=== PATIENT | female | born 1945 | race Caucasian/White ===

== ENCOUNTER 2017-06-24 16:55 | Emergency (ER) | payer MEDICARE, OTHER ==
[2017-06-24 16:56] VITALS: BMI 26.2
[2017-06-24] MEDS ORDERED: Albuterol-Ipratrop 3 mg / 0.5 (3 ml) UD INH STA (17:26)
[2017-06-24] MEDS ORDERED: Albuterol-Ipratrop 3 mg / 0.5 (3 ml) UD ONE ×2 (17:34→19:14)
[2017-06-24 18:01] LABS: BASO % 0.7 % (0.0-2.0); EOS % 0.2 % (0.0-4.0); HEMOGLOBIN 9.6 g/dL (11.0-16.0); LYMPH # 1.1 K/uL (1.0-4.3); LYMPH % 15.9 % (20.0-40.0); MEAN CORPUSCULAR HEMOGLOBIN 20.6 pg (27.0-31.0); MEAN CORPUSCULAR HGB CONC 31.7 g/dL (33.0-37.0); MEAN PLATELET VOLUME 7.4 fL (7.2-11.7); MONO # 0.4 K/uL (0.0-0.8); MONO % 6.3 % (0.0-10.0); NEUT # 5.3 K/uL (1.8-7.0); NEUT % 76.9 % (50.0-75.0); RBC 4.68 Mil/uL (3.80-5.20); RED CELL DISTRIBUTION WIDTH 17.5 % (11.5-14.5); WHITE BLOOD COUNT 6.9 K/uL (4.8-10.8)
[2017-06-24 18:03] LABS: MEAN CELL VOLUME 64.9 fL (81.0-99.0)
[2017-06-24 18:10] LABS: SQUAMOUS EPITHIAL < 1 /hpf (0-5); URINE BACTERIA RARE (<OCC); URINE BILIRUBIN NEGATIVE (NEGATIVE); URINE BLOOD NEGATIVE (NEGATIVE); URINE CLARITY Clear (Clear); URINE COLOR Colorless (YELLOW); URINE GLUCOSE (UA) NORMAL (Normal); URINE LEUKOCYTE ESTERASE NEG Leu/uL (Negative); URINE PROTEIN NEGATIVE (NEGATIVE); URINE UROBILINOGEN NORMAL mg/dL (0.2-1.0)
[2017-06-24 18:22] LABS: ALT/SGPT 19 U/L (9-52); AST/SGOT 31 U/L (14-36); BLOOD UREA NITROGEN 14 mg/dL (7-17); CALCIUM 9.1 mg/dl (8.6-10.4); GFR AFRICAN-AMERICAN > 60; GFR NON-AFRICAN AMERICAN > 60
[2017-06-24 18:25] LABS: B-TYPE NATRIURETIC PEPTIDE 242 pg/mL (0-900)
[2017-06-24 18:56] VITALS: O2SAT 100
--- NOTE | 2017-06-24 19:00 | C.PDOC ---
History Of Present Illness 72 y/o female presents to the ED with a cough. Patient is complaining of chest discomfort that has been bothering her for the past [address] Alas prescribed her a nebulizer machine which she used twice yesterday and once today. However, she is supposed to use the nebulizer 5-7 times per day. PMD: Dr.Sekar Mueller Time Seen by Provider: 06/24/17 17:19 Chief Complaint (Nursing): Shortness Of Breath History Per: Patient History/Exam Limitations: no limitations Onset/Duration Of Symptoms: Days (6) Current Symptoms Are (Timing): Still Present Associated Symptoms: Chest Pain, Productive Cough Recent travel outside of the [place]: No Past Medical History Vital Signs: Last Vital Signs Temp 98.2 F 06/24/17 17:08 Pulse 75 06/24/17 18:55 Resp 16 06/24/17 18:55 BP 135/75 06/24/17 18:55 Pulse Ox 100 06/24/17 19:00 - Medical History PMH: Anemia, Anxiety, Arthritis, Asthma, COPD, Gastritis, HTN, Hypercholesterolemia, Rheumatoid Arthritis Denies: Chronic Kidney Disease Surgical History: Coronary Stent, Endoscopy - [facility] Procedures CARDIAC STRESS TEST NEC (07/06/14) RT & LT HEART ANGIOCARD (10/09/12) RT/LEFT HEART CARD CATH (10/09/12) Family History: States: Unknown Family Hx - Social History Hx Tobacco Use: No Hx Alcohol Use: No Hx Substance Use: No - Immunization History Hx Tetanus Toxoid Vaccination: No Hx Influenza Vaccination: Yes Hx Pneumococcal Vaccination: Yes Review Of Systems Cardiovascular: Positive for: Chest Pain Respiratory: Positive for: Cough Physical Exam - Physical Exam Appears: No Acute Distress Skin: Normal Color, Warm, Dry Head: Atraumatic, Normacephalic Eye(s): bilateral: Normal Inspection, PERRL, EOMI Neck: Normal, Normal ROM, Supple Cardiovascular: Rhythm Regular, No Murmur Respiratory: No Normal Breath Sounds (mild tubular breath sounds), Other ( digitally reproducable pain in the intercoastal spces of the T4 and T5 region) Gastrointestinal/Abdominal: Normal Exam Back: Normal Inspection, No CVA Tenderness, No Vertebral Tenderness Extremity: Normal ROM, No Pedal Edema, No Deformity Neurological/Psych: Oriented x3 ED Course And Treatment - Laboratory Results Result Diagrams: 06/24/17 17:54 06/24/17 17:54 Lab Interpretation: Normal (trop/bnp neg.) ECG: Interpreted By Me ECG Rhythm: Sinus Rhythm ECG Interpretation: Normal Rate From EC O2 Sat by Pulse Oximetry: 100 Pulse Ox Interpretation: Normal - Radiology CXR: Interpreted by Me CXR Interpretation: Yes: No Acute Disease, Other (+ some bronchial cuff thickening c/w airway disease) Reevaluation Time: 18:58 Reassessment Condition: Improved - Physician Consult Information Outcome Of Conversation: 1730, 1830, d/w Dr. Fritz, ok to d/c home. Medical Decision Making Medical Decision Making: mild airway disease, no pna/pnx poor compliance with nebs tx @ home. Disposition Doctor Will See Patient In The: Office Counseled Patient/Family Regarding: Studies Performed, Diagnosis - Disposition Referrals: Jolene Mueller MD [Staff Provider] - Disposition: HOME/ ROUTINE Disposition Time: 18:59 Condition: GOOD Additional Instructions: continue Duoneb Inhaled treatments using TWO ampules every 3-4 hours/day. follow-up with Dr. Fritz- call for an appointment Your evaluation normal today Chest discomfort: Costochondritis motrin 400-600 mg every 6 hours as needed Instructions: Asthma in Adults Forms: [facility] (Marshallese) - Clinical Impression Clinical Impression: Reactive airway disease - Scribe Statement The provider has reviewed the documentation as recorded by the Scribe ( Nickie Buchanan) All medical record entries made by the Scribe were at my direction and personally dictated by me. I have reviewed the chart and agree that the record accurately reflects my personal performance of the history, physical exam, medical decision making, and the department course for this patient. I have also personally directed, reviewed, and agree with the discharge instructions and disposition.
[2017-06-24] MEDS ORDERED: Albuterol-Ipratrop 3 mg / 0.5 (3 ml) UD INH SCH (19:15)
[2017-06-24] MEDS ORDERED: Albuterol-Ipratrop 3 mg / 0.5 (3 ml) UD INH ONE (19:16)
[2017-06-24 19:38] VITALS: BP 149/70; PULSE 83; RESP 18; TEMP 97.7
--- NOTE | 2017-06-25 08:39 | RAD ---
Chest x-ray two views History: Shortness of breath. Comparison: 11/01/2016 Findings: Mild venous congestion. Right hilar prominence. Small nodular density at the right costophrenic angle. This is of uncertain clinical etiology. This has not significantly changed since the prior study. This may represent a small nodule or granuloma. Heart size within normal limits. Calcific tendinopathy of the left proximal humerus. Impression: Mild venous congestion. Right hilar prominence. Small nodular density at the right costophrenic angle. This is of uncertain clinical etiology. This has not significantly changed since the prior study. This may represent a small nodule or granuloma.
--- NOTE | 2017-06-27 08:34 | CARD ---
APPROVED REPORT EKG Measurement Heart [id number] <Conclusion> Normal sinus rhythm Normal ECG
== END 2017-06-24 19:44 | disposition home or self-care (01) ==
LOC: C.ER 16:55
DX: J45.909 Unspecified asthma, uncomplicated (principal)
CPT/HCPCS: 71046; 80053; 81001; 83880; 84484; 85025; 87804; 93005; 94640; 96374; 99285; J2930

== ENCOUNTER 2017-08-23 16:01 | Emergency (ER) | payer MEDICARE, OTHER ==
[2017-08-23 16:01] VITALS: BMI 26.2
[2017-08-23 16:30] VITALS: O2SAT 97
[2017-08-23] MEDS ORDERED: Sodium Chloride 0.9% 1,000 ML IV ONE (17:08)
[2017-08-23] MEDS ORDERED: Belladonna-Phenobarbital PO STA (17:08)
[2017-08-23] MEDS ORDERED: Aluminum Hydroxide/Magnesium Hydroxide Susp (30 mL) PO STA (17:08)
[2017-08-23 17:28] LABS: EOS % 0.1 % (0.0-4.0); LYMPH # 0.9 K/uL (1.0-4.3); LYMPH % 9.4 % (20.0-40.0); MEAN CELL VOLUME 66.5 fL (81.0-99.0); MEAN CORPUSCULAR HEMOGLOBIN 20.8 pg (27.0-31.0); MEAN CORPUSCULAR HGB CONC 31.2 g/dL (33.0-37.0); MONO # 0.3 K/uL (0.0-0.8); MONO % 3.4 % (0.0-10.0); NEUT # 8.3 K/uL (1.8-7.0); NEUT % 87.1 % (50.0-75.0); NRBC % 0.1 % (0.0-2.0); PLATELET COUNT 323 K/uL (130-400); RBC 4.83 Mil/uL (3.80-5.20); RED CELL DISTRIBUTION WIDTH 17.6 % (11.5-14.5); WHITE BLOOD COUNT 9.5 K/uL (4.8-10.8)
[2017-08-23] MEDS ORDERED: Aluminum Hydroxide/Magnesium Hydroxide Susp (30 mL) ONE (17:34)
[2017-08-23] MEDS ORDERED: Belladonna-Phenobarbital ONE (17:34)
[2017-08-23 17:40] LABS: URINE BILIRUBIN NEGATIVE (NEGATIVE); URINE BLOOD NEGATIVE (NEGATIVE); URINE CLARITY Clear (Clear); URINE COLOR Yellow (YELLOW); URINE GLUCOSE (UA) NORMAL (Normal); URINE LEUKOCYTE ESTERASE 1+ Leu/uL (Negative); URINE PROTEIN NEGATIVE (NEGATIVE); URINE UROBILINOGEN NORMAL mg/dL (0.2-1.0)
[2017-08-23 18:02] LABS: CALCIUM 8.8 mg/dl (8.6-10.4); GFR AFRICAN-AMERICAN > 60; GFR NON-AFRICAN AMERICAN 54; LIPASE 182 U/L (23-300)
[2017-08-23 18:09] LABS: ALB/GLOB RATIO 1.3 (1.0-2.1); ALBUMIN 4.1 g/dL (3.5-5.0); ALT/SGPT 26 U/L (9-52); AST/SGOT 48 U/L (14-36); BLOOD UREA NITROGEN 25 mg/dL (7-17)
--- NOTE | 2017-08-23 18:29 | CT ---
PROCEDURE: CT Abdomen and Pelvis without intravenous contrast HISTORY: LUQ abdominal tenderness COMPARISON: 07/03/2014. TECHNIQUE: CT scan of the abdomen and pelvis was performed without administration of intravenous contrast. Oral contrast was not administered. Coronal and sagittal reformatted images were obtained. Radiation dose: Total exam DLP = 340.01 mGy-cm. This CT exam was performed using one or more of the following dose reduction techniques: Automated exposure control, adjustment of the mA and/or kV according to patient size, and/or use of iterative reconstruction technique. FINDINGS: LOWER THORAX: There is a 3 mm calcified nodule in the right lateral lung base. The visualized lungs are otherwise clear. LIVER: Normal in size. No gross lesion or ductal dilatation. GALLBLADDER AND BILE DUCTS: The gallbladder is contracted. PANCREAS: Normal in size. No gross lesion or ductal dilatation. SPLEEN: The spleen is normal in size and there is a nonspecific coarse calcification posteriorly and medial to the spleen, likely sequela of prior granulomatous infection. ADRENALS: No discrete nodule. KIDNEYS AND URETERS: Normal in size without nephrolithiasis. No hydronephrosis. There is a stable simple cyst in the left interpolar region. VASCULATURE: No aortic aneurysm. BOWEL: The stomach is distended and there is ingested material within. There is also distention of the duodenum The small bowel loops are normal in caliber. The colon is unremarkable. No bowel dilatation or obstruction APPENDIX: Normal appendix. PERITONEUM: No free fluid. No free air. LYMPH NODES: No enlarged lymph nodes. BLADDER: Unremarkable. REPRODUCTIVE: Enlarged fibroid uterus with a calcified fibroid in the posterior wall. BONES: No acute fracture. Multilevel degenerative disc disease in the lower lumbar spine. OTHER FINDINGS: None. IMPRESSION: No acute abdominal or pelvic abnormality. Distended stomach and duodenum. No evidence for bowel obstruction.
[2017-08-23 19:16] LABS: LYMPHOCYTE 6 % (20-40); MONOCYTE 5 % (0-10); NEUTROPHIL 89 % (50-75); PLATELET ESTIMATE NORMAL (NORMAL); TOTAL CELLS COUNTED 100
[2017-08-23 19:17] LABS: ANISOCYTOSIS SLIGHT; HYPOCHROMIC SLIGHT; MICROCYTOSIS SLIGHT; OVALOCYTES SLIGHT; POIKILOCYTOSIS SLIGHT; TARGET CELLS SLIGHT; TEARDROP CELLS SLIGHT
[2017-08-23 19:18] LABS: LARGE PLATELETS PRESENT
[2017-08-23 19:25] VITALS: BP 151/81; PULSE 60; RESP 19; TEMP 97.6
--- NOTE | 2017-08-23 21:28 | C.PDOC ---
History Of Present Illness 72 year old female, whose PMHx includes gastritis, presents to the ED for evaluation of left upper quadrant abdominal pain which began 2 weeks ago. Patient states she feels like the area is "bloated." She reports undergoing an endoscopy 3 years ago. Patient denies fever, chills, nausea, vomiting, blood in stool, dysuria, or changes in eating habits. Chief Complaint (Nursing): Abdominal Pain History Per: Patient History/Exam Limitations: no limitations Onset/Duration Of Symptoms: Other (2 weeks ) Current Symptoms Are (Timing): Still Present Location Of Pain/Discomfort: LUQ Quality Of Discomfort: "Pain" Associated Symptoms: denies: Fever, Chills, Nausea, Vomiting, Urinary Symptoms Additional History Per: Patient Abnormal Vaginal Bleeding: No Past Medical History Reviewed: Historical Data, Nursing Documentation, Vital Signs Vital Signs: Last Vital Signs Temp 97.6 F 08/23/17 19:23 Pulse 60 08/23/17 19:23 Resp 19 08/23/17 19:23 BP 151/81 H 08/23/17 19:23 Pulse Ox 97 08/23/17 21:54 - Medical History PMH: Anemia, Anxiety, Arthritis, Asthma, COPD, Gastritis, HTN, Hypercholesterolemia, Rheumatoid Arthritis Denies: Chronic Kidney Disease Surgical History: Coronary Stent, Endoscopy - [facility] Procedures CARDIAC STRESS TEST NEC (07/06/14) RT & LT HEART ANGIOCARD (10/09/12) RT/LEFT HEART CARD CATH (10/09/12) Family History: States: Unknown Family Hx - Social History Hx Tobacco Use: No Hx Alcohol Use: No Hx Substance Use: No - Immunization History Hx Tetanus Toxoid Vaccination: No Hx Influenza Vaccination: Yes Hx Pneumococcal Vaccination: Yes Review Of Systems Constitutional: Negative for: Fever, Chills Gastrointestinal: Positive for: Abdominal Pain (left upper quadrant ). Negative for: Nausea, Vomiting, Hematochezia Genitourinary: Negative for: Dysuria Physical Exam - Physical Exam Appears: Non-toxic, No Acute Distress Skin: Normal Color, Warm, Dry Head: Atraumatic, Normacephalic Eye(s): bilateral: Normal Inspection Oral Mucosa: Moist Neck: Supple Chest: Symmetrical, No Deformity Cardiovascular: Rhythm Regular, Murmur Respiratory: Normal Breath Sounds, No Rales, No Rhonchi, No Wheezing Gastrointestinal/Abdominal: Soft, No Tenderness, No Guarding, No Rebound Extremity: Normal ROM, Capillary Refill (less than 2 seconds ) Neurological/Psych: Oriented x3, Normal Speech, Normal Cognition ED Course And Treatment - Laboratory Results Result Diagrams: 08/23/17 17:23 08/23/17 17:23 O2 Sat by Pulse Oximetry: 97 (on RA) Pulse Ox Interpretation: Normal - CT Scan/US CT A/P Other Rad Studies (CT/US): Interpreted By Me, Read By Radiologist, Radiology Report Reviewed CT/US Interpretation: PROCEDURE: CT Abdomen and Pelvis without intravenous contrast. HISTORY: LUQ abdominal tenderness. COMPARISON: 07/03/2014. TECHNIQUE: CT scan of the abdomen and pelvis was performed without administration of intravenous contrast. Oral contrast was not administered. Coronal and sagittal reformatted images were obtained. Radiation dose: Total exam DLP = 340.01 mGy-cm. This CT exam was performed using one or more of the following dose reduction techniques: Automated exposure control, adjustment of the mA and/or kV according to patient size, and/or use of iterative reconstruction technique. FINDINGS: LOWER THORAX: There is a 3 mm calcified nodule in the right lateral lung base. The visualized lungs are otherwise clear. LIVER: Normal in size. No gross lesion or ductal dilatation. GALLBLADDER AND BILE DUCTS: The gallbladder is contracted. PANCREAS: Normal in size. No gross lesion or ductal dilatation. SPLEEN: The spleen is normal in size and there is a nonspecific coarse calcification posteriorly and medial to the spleen, likely sequela of prior granulomatous infection. ADRENALS: No discrete nodule. KIDNEYS AND URETERS: Normal in size without nephrolithiasis. No hydronephrosis. There is a stable simple cyst in the left interpolar region. VASCULATURE: No aortic aneurysm. BOWEL: The stomach is distended and there is ingested material within. There is also distention of the duodenum The small bowel loops are normal in caliber. The colon is unremarkable. No bowel dilatation or obstruction. APPENDIX: Normal appendix. PERITONEUM: No free fluid. No free air. LYMPH NODES: No enlarged lymph nodes. BLADDER: Unremarkable. REPRODUCTIVE: Enlarged fibroid uterus with a calcified fibroid in the posterior wall. BONES: No acute fracture. Multilevel degenerative disc disease in the lower lumbar spine. OTHER FINDINGS: None. IMPRESSION: No acute abdominal or pelvic abnormality. Distended stomach and duodenum. No evidence for bowel obstruction. Medical Decision Making Medical Decision Making: Impression: 72 year old female with left upper quadrant abdominal pain Progress: Bloodwork, urinalysis, CT A/P ordered and reviewed. PO, Maalox PO, Pepcid IVP, and IV Fluids given. On re-exam, patient is resting comfortably, showing no signs of distress and reports an improvement in her symptoms. Patient is tolerating PO intake and her abdomen remains soft. Patient is stable for discharge. She is advised to follow up with her PMD within 1-2 days for further evaluation and/or return to the ED if symptoms persist or worsen. Disposition - Disposition Referrals: Jolene Mueller MD [Staff Provider] - Disposition: HOME/ ROUTINE Disposition Time: 18:30 Condition: GOOD Additional Instructions: NELY MEEK, thank you for letting us take care of you today. Your provider was Keo Escalante DO and you were treated for ABD PAIN. The emergency medical care you received today was directed at your acute symptoms. If you were prescribed any medication, please fill it and take as directed. It may take several days for your symptoms to resolve. Return to the Emergency Department if your symptoms worsen, do not improve, or if you have any other problems. Please contact your doctor or call one of the physicians/clinics you have been referred to that are listed on the Patient Visit Information form that is included in your discharge packet. Bring any paperwork you were given at discharge with you along with any medications you are taking to your follow up visit. Our treatment cannot replace ongoing medical care by a primary care provider outside of the emergency department. Thank you for allowing the [facility] team to be part of your care today. Follow up with your primary care doctor in 3-4 days for re-evaluation and further management. Prescriptions: Ranitidine HCl [Zantac] 150 mg PO BID #20 tablet Instructions: Gastritis (DC) Forms: [facility] (Kyrgyz) - Clinical Impression Clinical Impression: Gastritis - Scribe Statement The provider has reviewed the documentation as recorded by the Scribe (Nano Monaco) Provider Attestation: All medical record entries made by the Scribe were at my direction and personally dictated by me. I have reviewed the chart and agree that the record accurately reflects my personal performance of the history, physical exam, medical decision making, and the department course for this patient. I have also personally directed, reviewed, and agree with the discharge instructions and disposition.
== END 2017-08-23 19:26 | disposition home or self-care (01) ==
LOC: C.ER 16:01
DX: K29.70 Gastritis, unspecified, without bleeding (principal); E78.00 Pure hypercholesterolemia, unspecified; I10 Essential (primary) hypertension; M06.9 Rheumatoid arthritis, unspecified; J44.9 Chronic obstructive pulmonary disease, unspecified
CPT/HCPCS: 74176; 80053; 81001; 83690; 85025; 87086; 96374; 99285; J7030

== ENCOUNTER 2017-10-03 15:52 | Inpatient (IN) | payer MEDICARE, OTHER ==
[2017-10-03 15:52] VITALS: BMI 26.2
[2017-10-03] MEDS ORDERED: Sodium Chloride 0.9% 1,000 ML IV ONE (16:54)
--- NOTE | 2017-10-03 16:57 | C.PDOC ---
History Of Present Illness 72 y/o female with history of Asthma, HTN, HLD and Anemia presents to ED with c/ o fever, chills, body aches and cough productive with yellow sputum for 4 days. Patient reports chest pain with cough and states she had taken Tylenol at night with no improvement. Patient saw Dr. Mueller for symptoms who advised she come to ED for further evaluation. Patient admits to sob and denies nausea, vomiting, dysuria or any other complaints at this time. Time Seen by Provider: 10/03/17 16:33 Chief Complaint (Nursing): Fever History Per: Patient History/Exam Limitations: no limitations Onset/Duration Of Symptoms: Days Current Symptoms Are (Timing): Still Present Associated Symptoms: Fever, Cough, Sputum Past Medical History Reviewed: Historical Data, Nursing Documentation, Vital Signs Vital Signs: Last Vital Signs Temp 101.6 F H 10/03/17 16:04 Pulse 102 H 10/03/17 16:04 Resp 22 10/03/17 16:04 BP 122/76 10/03/17 16:04 Pulse Ox 90 L 10/03/17 17:01 - Medical History PMH: Anemia, Anxiety, Arthritis, Asthma, COPD, Gastritis, HTN, Hypercholesterolemia, Rheumatoid Arthritis Surgical History: Coronary Stent, Endoscopy - [facility] Procedures CARDIAC STRESS TEST NEC (07/06/14) RT & LT HEART ANGIOCARD (10/09/12) RT/LEFT HEART CARD CATH (10/09/12) Family History: States: No Known Family Hx - Social History Hx Tobacco Use: No Hx Alcohol Use: No Hx Substance Use: No - Immunization History Hx Tetanus Toxoid Vaccination: No Hx Influenza Vaccination: Yes Hx Pneumococcal Vaccination: Yes Review Of Systems Constitutional: Positive for: Fever, Chills, Malaise Cardiovascular: Positive for: Chest Pain Respiratory: Positive for: Cough, Shortness of Breath, Sputum Gastrointestinal: Negative for: Nausea, Vomiting Genitourinary: Negative for: Dysuria Skin: Negative for: Rash Physical Exam - Physical Exam Appears: Non-toxic, No Acute Distress Skin: Warm, Dry, No Rash Head: Atraumatic, Normacephalic Eye(s): bilateral: Normal Inspection Oral Mucosa: Moist Throat: Normal, No Erythema, No Exudate Neck: Supple Cardiovascular: Rhythm Regular, Other (Dry cough present) Respiratory: No Rales, No Rhonchi, Wheezing (bilateral) Gastrointestinal/Abdominal: Soft, Tenderness (left side ), No Guarding, No Rebound Extremity: Normal ROM, Capillary Refill (<2 seconds) Neurological/Psych: Oriented x3, Normal Speech, Normal Cognition ED Course And Treatment - Laboratory Results Result Diagrams: 10/03/17 17:15 10/03/17 17:15 Lab Interpretation: Abnormal (PO2 65 on RA, WBC 11.8, lactate 1.0) O2 Sat by Pulse Oximetry: 90 (RA) - Radiology CXR: Viewed By Me, Read By Radiologist CXR Interpretation: Yes: No Acute Disease Reevaluation Time: 18:29 Reassessment Condition: Improved (Feels better on O2 nasal canula.) - Physician Consult Information Physician Contacted: Jolene Mueller Outcome Of Conversation: Patient to be kept for observation and IV antibiotics Disposition - Disposition Disposition: HOSPITALIZED Disposition Time: 18:30 Condition: STABLE - POA Present On Arrival: None - Clinical Impression Clinical Impression: Fever, Cough in adult, Hypoxia - Scribe Statement The provider has reviewed the documentation as recorded by the Scribmeng Richard All medical record entries made by the Hamidaibmeng were at my direction and personally dictated by me. I have reviewed the chart and agree that the record accurately reflects my personal performance of the history, physical exam, medical decision making, and the department course for this patient. I have also personally directed, reviewed, and agree with the discharge instructions and disposition.
[2017-10-03 17:20] LABS: BASO # 0.1 K/uL (0.0-0.2); BASO % 0.5 % (0.0-2.0); EOS % 0.2 % (0.0-4.0); HEMOGLOBIN 9.6 g/dL (11.0-16.0); LYMPH # 1.9 K/uL (1.0-4.3); MEAN CELL VOLUME 64.8 fL (81.0-99.0); MEAN CORPUSCULAR HEMOGLOBIN 20.3 pg (27.0-31.0); MEAN CORPUSCULAR HGB CONC 31.3 g/dL (33.0-37.0); MEAN PLATELET VOLUME 6.9 fL (7.2-11.7); MONO # 1.2 K/uL (0.0-0.8); MONO % 10.3 % (0.0-10.0); NEUT # 8.6 K/uL (1.8-7.0); RBC 4.7 Mil/uL (3.80-5.20); RED CELL DISTRIBUTION WIDTH 16.1 % (11.5-14.5); WHITE BLOOD COUNT 11.8 K/uL (4.8-10.8)
[2017-10-03 17:24] LABS: ABG ALLEN TEST PO; ARTERIAL BLOOD GAS HCO3 25.1 mmol/L (21-28); ARTERIAL BLOOD GAS O2 SAT 95.4 % (95-98); ARTERIAL BLOOD GAS PCO2 33 mm/Hg (35-45); ARTERIAL BLOOD GAS PH 7.46 (7.35-7.45); ARTERIAL BLOOD GAS PO2 65 mm/Hg (80-100); ARTERIAL BLOOD GAS TCO2 24.5 mmol/L (22-28)
[2017-10-03 17:35] LABS: ALB/GLOB RATIO 1.3 (1.0-2.1); ALBUMIN 3.8 g/dL (3.5-5.0)
--- NOTE | 2017-10-03 17:37 | RAD ---
Date of service: 10/03/2017 PROCEDURE: CHEST RADIOGRAPH, 1 VIEW HISTORY: Pneumonia COMPARISON: 06/24/2017. FINDINGS: LUNGS: The lungs are well inflated and clear. PLEURA: No pneumothorax or pleural fluid seen. CARDIOVASCULAR: Normal. OSSEOUS STRUCTURES: No significant abnormalities. VISUALIZED UPPER ABDOMEN: Normal. OTHER FINDINGS: None. IMPRESSION: No active pulmonary disease.
[2017-10-03] MEDS ORDERED: cefTRIAXone IV 1 gm in Dextros 50 ML IVPB ONE ×2 (17:47→19:01)
[2017-10-03] MEDS ORDERED: Azithromycin 500 MG in Sodium Chloride 0.9% 250 ML IVPB STA (17:48)
[2017-10-03 18:27] LABS: SQUAMOUS EPITHIAL 1 /hpf (0-5); URINE BACTERIA RARE (<OCC); URINE BILIRUBIN NEGATIVE (NEGATIVE); URINE BLOOD NEGATIVE (NEGATIVE); URINE CLARITY Hazy (Clear); URINE GLUCOSE (UA) NORMAL (Normal); URINE LEUKOCYTE ESTERASE 3+ Leu/uL (Negative); URINE PROTEIN 2+ mg/dL (NEGATIVE)
[2017-10-03 18:30] LABS: URINE COLOR YELLOW (YELLOW)
[2017-10-03] MEDS ORDERED: ACETAMINOPHEN 650 MG PO PRN ×3 (19:24→20:01)
[2017-10-03] MEDS: MethylPREDNISolone 40 mg Vial IVP SCH (22:04)
[2017-10-03] MEDS: Albuterol-Ipratrop 3 mg / 0.5 (3 ml) UD INH SCH (22:32)
[2017-10-04] MEDS: Albuterol-Ipratrop 3 mg / 0.5 (3 ml) UD INH SCH ×4 (01:13→19:13)
[2017-10-04] MEDS: Fluticasone-Salmeterol 500-50mcg Diskus INH SCH ×2 (08:15→19:13)
[2017-10-04] MEDS: cefTRIAXone IV 1 gm in Dextros 50 ML IVPB SCH (09:00)
[2017-10-04] MEDS: Metoprolol Succinate 25 mg XL Tab PO SCH (09:55)
[2017-10-04] MEDS: MethylPREDNISolone 40 mg Vial IVP SCH (09:55)
[2017-10-04] MEDS: Azithromycin 500mg/250ML NS 500 MG/250 ML BAG IVPB SCH (10:30)
[2017-10-04] MEDS: (Novolin R) Insulin Human Regular 100 units/ml vial SC SCH ×3 (11:30→21:48)
--- NOTE | 2017-10-04 15:49 | CT ---
Date of service: 10/04/2017 PROCEDURE: CT Chest without contrast HISTORY: pneumonia COMPARISON: 01/10/2017 TECHNIQUE: Contiguous axial images were obtained through the chest without intravenous contrast enhancement. Sagittal and coronal reconstructions were performed. Radiation dose (DLP): 392 mGy-cm. This CT exam was performed using one or more of the following dose reduction techniques: Automated exposure control, adjustment of the mA and/or kV according to patient size, and/or use of iterative reconstruction technique. FINDINGS: LUNGS: No dense consolidation seen. Bilateral diffuse patchy areas of coalescent ground-glass opacity are present some disease having mosaic pattern suggested. Bilateral minimal pulmonary infiltrates are compatible with this. These not particularly dense. These are however interval changes in lung parenchymal attenuation since the prior exam. The benign calcified right lower lobe pulmonary granuloma is renoted No interval worrisome nodules appreciated. Central tracheobronchial airways patent. MEDIASTINUM: Unremarkable thoracic aorta. No aneurysm. Normal sized heart. Coronary artery calcifications present Main pulmonary artery unremarkable. No vascular congestion. No suspicious lymphadenopathy. A few calcified mediastinal lymph nodes noted PLEURA: No pleural fluid. No pneumothorax. BONES: No fracture. No destructive lesion. UPPER ABDOMEN: Splenic calcified granulomas noted -unchanged. OTHER FINDINGS: None. IMPRESSION: Interval bilateral and diffuse patchy ground-glass pulmonary infiltrates ; no dense consolidation seen. No endobronchial or gross masses identified. Findings are more pronounced in the right lung. . Prior granulomatous exposure.
[2017-10-05] MEDS: Albuterol-Ipratrop 3 mg / 0.5 (3 ml) UD INH SCH ×4 (02:22→20:18)
[2017-10-05] MEDS: (Novolin R) Insulin Human Regular 100 units/ml vial SC SCH ×4 (08:15→21:31)
[2017-10-05] MEDS: Fluticasone-Salmeterol 500-50mcg Diskus INH SCH ×2 (08:26→20:22)
[2017-10-05] MEDS: cefTRIAXone IV 1 gm in Dextros 50 ML IVPB SCH (09:30)
[2017-10-05] MEDS ORDERED: MethylPREDNISolone 40 mg Vial IVP SCH (10:00)
[2017-10-05] MEDS: Metoprolol Succinate 25 mg XL Tab PO SCH (10:15)
[2017-10-05] MEDS: Azithromycin 500mg/250ML NS 500 MG/250 ML BAG IVPB SCH (10:30)
--- NOTE | 2017-10-05 10:54 | CP.PCM.PN ---
Subjective - Date & Time of Evaluation Date of Evaluation: 10/05/17 Time of Evaluation: 10:54 - Subjective Subjective: Patient today feeling slightly better. Less cough noted, still having epigastric discomfort. No nausea vomiting. Today the blood sugars much controlled than before. Vital signs otherwise stable. Exertional desaturation noted, 86% on room air noted Will get blood works including neurological parameters. In my opinion patient possibly has inflammatory lung disease. Underlying sarcoidosis, rheumatoid arthritis related lung changes cannot be ruled out. She is currently on antibiotic, and also Solu-Medrol. We will follow the patient. Objective - Vital Signs/Intake and Output Vital Signs (last 24 hours): Temp Pulse Resp BP Pulse Ox 97.7 F 80 20 119/72 95 10/05/17 07:00 10/05/17 07:00 10/05/17 07:00 10/05/17 07:00 10/05/17 07:00 Intake and Output: 10/05/17 10/05/17 06:59 18:59 Intake Total 1220 Balance 1220 - Medications Medications: Current Medications Acetaminophen (Tylenol 325mg Tab) 650 mg PO Q6H PRN PRN Reason: Pain, moderate (4-7) Last Admin: 10/03/17 22:24 Dose: 650 mg Albuterol/Ipratropium (Duoneb 3 Mg/0.5 Mg (3 Ml) Ud) 3 ml INH RQ6 [facility] [place] Last Admin: 10/05/17 07:26 Dose: 3 ml Amlodipine Besylate (Norvasc) 10 mg PO DAILY [facility] [place] Last Admin: 10/05/17 10:15 Dose: 10 mg Clopidogrel Bisulfate (Plavix) 75 mg PO DAILY [facility] [place] Last Admin: 10/05/17 10:15 Dose: 75 mg Ezetimibe (Zetia) 10 mg PO DAILY [facility] [place] Last Admin: 10/05/17 10:15 Dose: 10 mg Famotidine (Pepcid) 20 mg PO BID [facility] [place] Last Admin: 10/05/17 10:14 Dose: 20 mg Folic Acid (Folic Acid) 1 mg PO DAILY [facility] [place] Last Admin: 10/05/17 10:15 Dose: 1 mg Ceftriaxone Sodium (Rocephin Iv 1 Gm Duplex) 50 mls @ 100 mls/hr IVPB DAILY D[facility]ELLE PRN Reason: Protocol Last Admin: 10/05/17 09:30 Dose: 100 mls/hr Azithromycin (Zithromax 500mg In Ns Addvantage) 500 mg in 250 mls @ 167 mls/hr IVPB Q24H [facility]ANIELLE PRN Reason: Protocol Last Admin: 10/04/17 10:30 Dose: 167 mls/hr Insulin Human Regular (Novolin R) 0 unit SC ACHS DANIELLE PRN Reason: Protocol Last Admin: 10/05/17 08:15 Dose: 2 unit Metformin HCl (Glucophage) 500 mg PO BID D[facility]ELLE Last Admin: 10/05/17 10:15 Dose: 500 mg Methylprednisolone (Solu-Medrol) 40 mg IVP DAILY [facility] [place] Last Admin: 10/05/17 10:27 Dose: 40 mg Metoprolol Succinate (Toprol Xl) 25 mg PO DAILY [facility] Last Admin: 10/05/17 10:15 Dose: 25 mg Rosuvastatin Calcium (Crestor) 10 mg PO HS [facility] [place] Last Admin: 10/04/17 21:08 Dose: 10 mg Fluticasone/Salmeterol (Advair Diskus 500/50) 1 puff INH RQ12 [facility] [place] Last Admin: 10/05/17 08:26 Dose: Not Given - Labs Labs: 10/03/17 17:15 10/03/17 17:15
--- NOTE | 2017-10-05 10:54 | CP.PCM.HP ---
History of Present Illness - History of Present Illness History of Present Illness: Chief complaint: Cough shortness of breath HPI: 72-year-old female with a history of hypertension, CAD, cardiac stent, hypercholesterolemia, asthma, multiple allergies and osteoarthritis, rheumatoid arthritis came to the emergency room, following the patient was seen in my office. Patient was complaining of increasing fever, chills, 3 days duration. Patient initially started having some mild soreness of throat. But gradually got worse, chills noted, sweating present. She was not able to bleed. She came into my office, with the severe high-grade fever, and also hypoxia, I sent the patient to the emergency room immediately. Cough noted, but mostly dry, occasionally mucus noted. The mucus is thick yellow colored. Chest discomfort and chest pain noted with the cough. Tachycardia mildly noted. She denies any nausea, no diarrhea no vomiting no rash noted. She did not have any recent travel Past medical history: Hypertension, CAD, stent, hypercholesterolemia, asthma, multiple allergies, osteoarthritis, rheumatoid arthritis. Surgical history: Patient has a stent in the RCA. Patient had multiple endoscopy and a colonoscopy. Patient has multiple allergies including iodine, seasonal allergy, pollens, phenylenediamine, sulfa, cat danders. Personal history: Non-smoker nonalcoholic functional capacity is normal Family history noncontributory Review of system: Patient is having headache, cough, wheezing, chest tightness, shortness of breath, fever, chills, for 3-4 days duration. Patient has a multiple allergies in the past. Chest pain with the cough noted On examination: Patient noted to have a hypoxia at room air. Supplemental oxygen improves the oxygenation. Vital signs are stable otherwise. Mild tachycardia and high-grade fever noted. Chest a minimal expiratory bilateral wheezing noted irregular heart sound. Abdomen nontender. Pedal edema negative Labs reviewed Chest x-ray nonspecific. Labs otherwise nonspecific. Assessment and recommendation: 72-year-old female with multiple medical history including CAD's hypertension hypercholesterolemia status post a stent. Patient has rheumatoid arthritis, currently patient is also taking immunosuppressive treatment for rheumatoid arthritis in the form of methotrexate. Now admitted with a possible acute pneumonitis, pneumonia. We will get a CT scan of the chest. Antibiotic. Solu-Medrol. Oxygen supplementation. DVT GI prophylaxis. We will closely monitor. Present on Admission - Present on Admission Any Indicators Present on Admission: No History of DVT/PE: No History of Uncontrolled Diabetes: No Urinary Catheter: No Decubitus Ulcer Present: No Past Patient History - Infectious Disease Hx of Infectious Diseases: None - Past Medical History & Family History Past Medical History?: Yes - Past Social History Smoking Status: Never Smoked - CARDIAC Hx Hypercholesterolemia: Yes Hx Hypertension: Yes - PULMONARY Hx Asthma: Yes Hx Chronic Obstructive Pulmonary Disease (COPD): Yes - NEUROLOGICAL Hx Neurological Disorder: Yes - HEENT Hx HEENT Problems: Yes - RENAL Hx Chronic Kidney Disease: No - ENDOCRINE/METABOLIC Hx Endocrine Disorders: No - HEMATOLOGICAL/ONCOLOGICAL Hx Anemia: Yes Other/Comment: thalasemia - INTEGUMENTARY Hx Dermatological Problems: No - MUSCULOSKELETAL/RHEUMATOLOGICAL Hx Arthritis: Yes Hx Rheumatoid Arthritis: Yes - GASTROINTESTINAL Hx Gastritis: Yes - GENITOURINARY/GYNECOLOGICAL Hx Genitourinary Disorders: No - PSYCHIATRIC Hx Substance Use: No - SURGICAL HISTORY Hx Coronary Stent: Yes - ANESTHESIA Hx Anesthesia: Yes Hx Anesthesia Reactions: Yes (HAD ALLERGIC RECATION TO DYE DURING CATH) Hx Malignant Hyperthermia: No Has any member of the family had a problem w/ anesthesia?: No Meds Allergies/Adverse Reactions: Allergies Allergy/AdvReac Type Severity Reaction Status Date / Time Iodinated Contrast- Oral and Allergy Intermediate RASH Verified 10/03/17 17:20 IV Dye [Iodinated Contrast Media - IV Dye] Results - Vital Signs Recent Vital Signs: Last Vital Signs Temp 97.7 F 10/05/17 07:00 Pulse 80 10/05/17 07:00 Resp 20 10/05/17 07:00 BP 119/72 10/05/17 07:00 Pulse Ox 95 10/05/17 07:00 - Labs Result Diagrams: 10/03/17 17:15 10/03/17 17:15 Labs: Laboratory Results - last 24 hr 10/04/17 10/04/17 10/04/17 10:58 16:38 21:17 POC Glucose (mg/dL) 413 H* 242 H 167 H 10/05/17 07:03 POC Glucose (mg/dL) 152 H
--- NOTE | 2017-10-05 10:54 | CP.PCM.PN ---
Subjective - Date & Time of Evaluation Date of Evaluation: 10/04/17 Time of Evaluation: 11:06 - Subjective Subjective: Patient is currently sitting up comfortably. But upon walking patient has a oxygen desaturation. Coughing still present, but mucus is negative Patient underwent his CAT scan of the chest, showing evidence of diffuse alveolitis changes noted. And also patient has a oxygen desaturation upon walking. Most likely patient is currently having possible interstitial lung disease, underlying acute bronchiolitis cannot be ruled out. We will get CRP ESR inflammatory markers. We will get a pro calcitonin level Continue the antibiotic. Solu-Medrol. Blood sugar is being elevated, new onset diabetes secondary to drug-induced cannot be ruled out. We will follow the patient Objective - Vital Signs/Intake and Output Vital Signs (last 24 hours): Temp Pulse Resp BP Pulse Ox 97.7 F 80 20 119/72 95 10/05/17 07:00 10/05/17 07:00 10/05/17 07:00 10/05/17 07:00 10/05/17 07:00 Intake and Output: 10/05/17 10/05/17 06:59 18:59 Intake Total 1220 Balance 1220 - Medications Medications: Current Medications Acetaminophen (Tylenol 325mg Tab) 650 mg PO Q6H PRN PRN Reason: Pain, moderate (4-7) Last Admin: 10/03/17 22:24 Dose: 650 mg Albuterol/Ipratropium (Duoneb 3 Mg/0.5 Mg (3 Ml) Ud) 3 ml INH RQ6 [facility] Last Admin: 10/05/17 07:26 Dose: 3 ml Amlodipine Besylate (Norvasc) 10 mg PO DAILY [facility] Last Admin: 10/05/17 10:15 Dose: 10 mg Clopidogrel Bisulfate (Plavix) 75 mg PO DAILY [facility] Last Admin: 10/05/17 10:15 Dose: 75 mg Ezetimibe (Zetia) 10 mg PO DAILY [facility] Last Admin: 10/05/17 10:15 Dose: 10 mg Famotidine (Pepcid) 20 mg PO BID [facility] Last Admin: 10/05/17 10:14 Dose: 20 mg Folic Acid (Folic Acid) 1 mg PO DAILY [facility] Last Admin: 10/05/17 10:15 Dose: 1 mg Ceftriaxone Sodium (Rocephin Iv 1 Gm Duplex) 50 mls @ 100 mls/hr IVPB DAILY [facility] PRN Reason: Protocol Last Admin: 10/05/17 09:30 Dose: 100 mls/hr Azithromycin (Zithromax 500mg In Ns Addvantage) 500 mg in 250 mls @ 167 mls/hr IVPB Q24H [facility] PRN Reason: Protocol Last Admin: 10/04/17 10:30 Dose: 167 mls/hr Insulin Human Regular (Novolin R) 0 unit SC ACHS [facility] PRN Reason: Protocol Last Admin: 10/05/17 08:15 Dose: 2 unit Metformin HCl (Glucophage) 500 mg PO BID [facility] Last Admin: 10/05/17 10:15 Dose: 500 mg Methylprednisolone (Solu-Medrol) 40 mg IVP DAILY [facility] Last Admin: 10/05/17 10:27 Dose: 40 mg Metoprolol Succinate (Toprol Xl) 25 mg PO DAILY [facility] Last Admin: 10/05/17 10:15 Dose: 25 mg Rosuvastatin Calcium (Crestor) 10 mg PO HS [facility] Last Admin: 10/04/17 21:08 Dose: 10 mg Fluticasone/Salmeterol (Advair Diskus 500/50) 1 puff INH RQ12 [facility] Last Admin: 10/05/17 08:26 Dose: Not Given - Labs Labs: 10/03/17 17:15 10/03/17 17:15
[2017-10-05] MEDS: Promethazine 6.25 MG/5 ML CUP PO PRN (14:38)
[2017-10-06] MEDS: Albuterol-Ipratrop 3 mg / 0.5 (3 ml) UD INH SCH ×3 (02:20→20:13)
[2017-10-06 06:51] LABS: BASO # 0.1 K/uL (0.0-0.2); BASO % 0.4 % (0.0-2.0); HEMOGLOBIN 8.3 g/dL (11.0-16.0); LYMPH # 1.9 K/uL (1.0-4.3); LYMPH % 13.7 % (20.0-40.0); MEAN CELL VOLUME 64.7 fL (81.0-99.0); MEAN CORPUSCULAR HEMOGLOBIN 20.4 pg (27.0-31.0); MEAN CORPUSCULAR HGB CONC 31.6 g/dL (33.0-37.0); MEAN PLATELET VOLUME 7.2 fL (7.2-11.7); MONO % 7.1 % (0.0-10.0); NEUT # 10.7 K/uL (1.8-7.0); NEUT % 78.8 % (50.0-75.0); NRBC % 0.2 % (0.0-2.0); RBC 4.04 Mil/uL (3.80-5.20); RED CELL DISTRIBUTION WIDTH 16.3 % (11.5-14.5); WHITE BLOOD COUNT 13.6 K/uL (4.8-10.8)
[2017-10-06 07:02] LABS: ALB/GLOB RATIO 1.2 (1.0-2.1); ALBUMIN 3.4 g/dL (3.5-5.0); ALT/SGPT 43 U/L (9-52); AST/SGOT 37 U/L (14-36); BLOOD UREA NITROGEN 14 mg/dL (7-17); CALCIUM 9.2 mg/dl (8.6-10.4); GFR AFRICAN-AMERICAN > 60; GFR NON-AFRICAN AMERICAN > 60
[2017-10-06] MEDS: (Novolin R) Insulin Human Regular 100 units/ml vial SC SCH ×4 (08:20→21:13)
[2017-10-06] MEDS: Metoprolol Succinate 50 mg XL Tab PO SCH (10:50)
[2017-10-06] MEDS: MethylPREDNISolone 40 mg Vial IVP SCH ×2 (10:52→21:24)
[2017-10-06] MEDS: Azithromycin 500 MG in Sodium Chloride 0.9% 250 ML IVPB SCH (10:52)
[2017-10-06] MEDS: cefTRIAXone IV 1 gm in Dextros 50 ML IVPB SCH (11:00)
--- NOTE | 2017-10-06 21:20 | RAD ---
Date of service: 10/06/2017 HISTORY: PNA COMPARISON: Comparison is made with 10/03/2017 FINDINGS: LUNGS: No evidence of new infiltrate or consolidation in the lungs. PLEURA: No significant pleural effusion identified, no pneumothorax apparent. CARDIOVASCULAR: Normal. OSSEOUS STRUCTURES: No significant abnormalities. VISUALIZED UPPER ABDOMEN: Normal. OTHER FINDINGS: None. IMPRESSION: No radiographic evidence of pneumonia.
[2017-10-07] MEDS: Albuterol-Ipratrop 3 mg / 0.5 (3 ml) UD INH SCH ×4 (01:38→20:56)
[2017-10-07] MEDS: Fluticasone-Salmeterol 500-50mcg Diskus INH SCH ×3 (07:31→20:56)
[2017-10-07] MEDS: (Novolin R) Insulin Human Regular 100 units/ml vial SC SCH ×4 (08:14→22:09)
[2017-10-07] MEDS: Azithromycin 500 MG in Sodium Chloride 0.9% 250 ML IVPB SCH (11:00)
[2017-10-07] MEDS: Metoprolol Succinate 50 mg XL Tab PO SCH (11:02)
[2017-10-07] MEDS: MethylPREDNISolone 40 mg Vial IVP SCH ×2 (11:03→21:31)
[2017-10-08] MEDS: Albuterol-Ipratrop 3 mg / 0.5 (3 ml) UD INH SCH ×4 (01:19→20:34)
[2017-10-08] MEDS: Fluticasone-Salmeterol 500-50mcg Diskus INH SCH ×2 (07:16→20:33)
[2017-10-08] MEDS: (Novolin R) Insulin Human Regular 100 units/ml vial SC SCH ×4 (07:52→21:23)
--- NOTE | 2017-10-08 08:45 | CP.PCM.PN ---
Subjective - Date & Time of Evaluation Date of Evaluation: 10/07/17 Time of Evaluation: 20:03 - Subjective Subjective: Patient feeling slightly better. Nocturnal cough noted. She had x-ray of the lungs, showing evidence of significant improvement in the lung infiltrates, otherwise clear lungs Vital signs reviewed Labs reviewed Mildly elevated LDH, CRP elevated Patient possibly has rheumatoid arthritis exacerbation also. Associated lung disease cannot be ruled out. Possible community-acquired pneumonia improving. Continue to monitor Objective - Vital Signs/Intake and Output Vital Signs (last 24 hours): Temp Pulse Resp BP Pulse Ox 97.3 F L 90 97 H 153/76 H 97 10/08/17 08:25 10/08/17 08:25 10/08/17 08:25 10/08/17 08:25 10/08/17 08:25 Intake and Output: 10/08/17 10/08/17 06:59 18:59 Intake Total 400 Balance 400 - Medications Medications: Current Medications Acetaminophen (Tylenol 325mg Tab) 650 mg PO Q6H PRN PRN Reason: Pain, moderate (4-7) Last Admin: 10/03/17 22:24 Dose: 650 mg Albuterol/Ipratropium (Duoneb 3 Mg/0.5 Mg (3 Ml) Ud) 3 ml INH RQ6 [facility] Last Admin: 10/08/17 07:17 Dose: 3 ml Amlodipine Besylate (Norvasc) 2.5 mg PO DAILY [facility] Last Admin: 10/07/17 11:02 Dose: 2.5 mg Clopidogrel Bisulfate (Plavix) 75 mg PO DAILY [facility] Last Admin: 10/07/17 11:02 Dose: 75 mg Ezetimibe (Zetia) 10 mg PO DAILY [facility] Last Admin: 10/07/17 11:02 Dose: 10 mg Famotidine (Pepcid) 20 mg PO BID [facility] Last Admin: 10/07/17 17:39 Dose: 20 mg Folic Acid (Folic Acid) 1 mg PO DAILY [facility] Last Admin: 10/07/17 11:03 Dose: 1 mg Azithromycin 500 mg/ Sodium (Chloride) 250 mls @ 167 mls/hr IVPB Q24H [facility] PRN Reason: Protocol Last Admin: 10/07/17 11:00 Dose: 167 mls/hr Ceftriaxone Sodium 1 gm/ (Sodium Chloride) 100 mls @ 100 mls/hr IVPB DAILY [facility] PRN Reason: Protocol Last Admin: 10/07/17 10:00 Dose: 100 mls/hr Insulin Human Regular (Novolin R) 0 unit SC ACHS [facility] PRN Reason: Protocol Last Admin: 10/08/17 07:52 Dose: 2 unit Metformin HCl (Glucophage) 500 mg PO BID [facility] Last Admin: 10/07/17 17:39 Dose: 500 mg Methylprednisolone (Solu-Medrol) 40 mg IVP Q12 [facility] Last Admin: 10/07/17 21:31 Dose: 40 mg Metoprolol Succinate (Toprol Xl) 50 mg PO DAILY [facility] Last Admin: 10/07/17 11:02 Dose: 50 mg Promethazine HCl (Phenergan Syrup) 6.25 mg PO Q6 PRN PRN Reason: Cough Last Admin: 10/05/17 14:38 Dose: 6.25 mg Rosuvastatin Calcium (Crestor) 10 mg PO HS [facility] Last Admin: 10/07/17 21:31 Dose: 10 mg Fluticasone/Salmeterol (Advair Diskus 500/50) 1 puff INH RQ12 [facility] Last Admin: 10/08/17 07:16 Dose: 1 puff - Labs Labs: 10/06/17 06:32 10/06/17 06:32
--- NOTE | 2017-10-08 08:45 | CP.PCM.PN ---
Subjective - Date & Time of Evaluation Date of Evaluation: 10/06/17 Time of Evaluation: 20:03 - Subjective Subjective: Patient still continues to have a cough. Shortness of breath also noted. I was ambulating the patient, patient had a significant oxygen desaturation. Without oxygen patient pulse ox went down to 86%. She was also tachycardic and tachypneic at the time. Immediately patient was taken to the bed. Placed on oxygen. Clinical examination otherwise stable when she is resting Currently she is receiving Rocephin, azithromycin. On Solu-Medrol 40 mg twice a day. X-ray will be repeated tomorrow. Patient is currently being treated with acute pneumonia most likely, it occurred. Underlying asthma. Patient also has rheumatoid arthritis, underlying inflammatory lung disease cannot be ruled out, will continue to monitor. Objective - Vital Signs/Intake and Output Vital Signs (last 24 hours): Temp Pulse Resp BP Pulse Ox 97.3 F L 90 97 H 153/76 H 97 10/08/17 08:25 10/08/17 08:25 10/08/17 08:25 10/08/17 08:25 10/08/17 08:25 Intake and Output: 10/08/17 10/08/17 06:59 18:59 Intake Total 400 Balance 400 - Medications Medications: Current Medications Acetaminophen (Tylenol 325mg Tab) 650 mg PO Q6H PRN PRN Reason: Pain, moderate (4-7) Last Admin: 10/03/17 22:24 Dose: 650 mg Albuterol/Ipratropium (Duoneb 3 Mg/0.5 Mg (3 Ml) Ud) 3 ml INH RQ6 [facility] Last Admin: 10/08/17 07:17 Dose: 3 ml Amlodipine Besylate (Norvasc) 2.5 mg PO DAILY [facility] Last Admin: 10/07/17 11:02 Dose: 2.5 mg Clopidogrel Bisulfate (Plavix) 75 mg PO DAILY [facility] Last Admin: 10/07/17 11:02 Dose: 75 mg Ezetimibe (Zetia) 10 mg PO DAILY [facility] Last Admin: 10/07/17 11:02 Dose: 10 mg Famotidine (Pepcid) 20 mg PO BID [facility] Last Admin: 10/07/17 17:39 Dose: 20 mg Folic Acid (Folic Acid) 1 mg PO DAILY [facility] Last Admin: 10/07/17 11:03 Dose: 1 mg Azithromycin 500 mg/ Sodium (Chloride) 250 mls @ 167 mls/hr IVPB Q24H [facility] PRN Reason: Protocol Last Admin: 10/07/17 11:00 Dose: 167 mls/hr Ceftriaxone Sodium 1 gm/ (Sodium Chloride) 100 mls @ 100 mls/hr IVPB DAILY [facility] PRN Reason: Protocol Last Admin: 10/07/17 10:00 Dose: 100 mls/hr Insulin Human Regular (Novolin R) 0 unit SC ACHS [facility] PRN Reason: Protocol Last Admin: 10/08/17 07:52 Dose: 2 unit Metformin HCl (Glucophage) 500 mg PO BID [facility] Last Admin: 10/07/17 17:39 Dose: 500 mg Methylprednisolone (Solu-Medrol) 40 mg IVP Q12 [facility] Last Admin: 10/07/17 21:31 Dose: 40 mg Metoprolol Succinate (Toprol Xl) 50 mg PO DAILY [facility] Last Admin: 10/07/17 11:02 Dose: 50 mg Promethazine HCl (Phenergan Syrup) 6.25 mg PO Q6 PRN PRN Reason: Cough Last Admin: 10/05/17 14:38 Dose: 6.25 mg Rosuvastatin Calcium (Crestor) 10 mg PO HS [facility] Last Admin: 10/07/17 21:31 Dose: 10 mg Fluticasone/Salmeterol (Advair Diskus 500/50) 1 puff INH RQ12 [facility] Last Admin: 10/08/17 07:16 Dose: 1 puff - Labs Labs: 10/06/17 06:32 10/06/17 06:32
[2017-10-08 10:39] VITALS: RESP 20
[2017-10-08] MEDS: MethylPREDNISolone 40 mg Vial IVP SCH ×2 (10:46→21:40)
[2017-10-08] MEDS: Metoprolol Succinate 50 mg XL Tab PO SCH (10:46)
[2017-10-08] MEDS: Fluticasone Nasal 50 mcg/Spray NAS SCH ×2 (10:47→17:21)
[2017-10-08] MEDS: Promethazine 6.25 MG/5 ML CUP PO PRN (10:48)
[2017-10-08] MEDS: Azithromycin 500 MG in Sodium Chloride 0.9% 250 ML IVPB SCH (10:59)
[2017-10-08 12:03] LABS: BASO % 0.2 % (0.0-2.0); HEMOGLOBIN 8.8 g/dL (11.0-16.0); LYMPH # 1.7 K/uL (1.0-4.3); LYMPH % 10.7 % (20.0-40.0); MEAN CELL VOLUME 65.3 fL (81.0-99.0); MEAN CORPUSCULAR HEMOGLOBIN 20.4 pg (27.0-31.0); MEAN CORPUSCULAR HGB CONC 31.3 g/dL (33.0-37.0); MEAN PLATELET VOLUME 7.2 fL (7.2-11.7); MONO # 0.9 K/uL (0.0-0.8); MONO % 5.5 % (0.0-10.0); NEUT # 13.2 K/uL (1.8-7.0); NEUT % 83.6 % (50.0-75.0); NRBC % 0.1 % (0.0-2.0); RBC 4.3 Mil/uL (3.80-5.20); RED CELL DISTRIBUTION WIDTH 16.4 % (11.5-14.5); WHITE BLOOD COUNT 15.7 K/uL (4.8-10.8)
[2017-10-08 12:05] LABS: PROTHROMBIN TIME 10.7 SECONDS (9.7-12.2)
[2017-10-08 12:25] LABS: ALB/GLOB RATIO 1.2 (1.0-2.1); ALBUMIN 3.8 g/dL (3.5-5.0); ALT/SGPT 40 U/L (9-52); AST/SGOT 30 U/L (14-36); BLOOD UREA NITROGEN 19 mg/dL (7-17); CALCIUM 9.7 mg/dl (8.6-10.4); GFR AFRICAN-AMERICAN > 60; GFR NON-AFRICAN AMERICAN > 60
[2017-10-09] MEDS: Albuterol-Ipratrop 3 mg / 0.5 (3 ml) UD INH SCH ×4 (01:31→19:51)
[2017-10-09] MEDS: Fluticasone-Salmeterol 500-50mcg Diskus INH SCH ×2 (07:21→19:51)
[2017-10-09] MEDS: (Novolin R) Insulin Human Regular 100 units/ml vial SC SCH ×4 (07:36→21:16)
[2017-10-09] MEDS: Fluticasone Nasal 50 mcg/Spray NAS SCH ×2 (11:13→17:37)
[2017-10-09] MEDS: Azithromycin 500 MG in Sodium Chloride 0.9% 250 ML IVPB SCH (11:14)
[2017-10-09] MEDS: Metoprolol Succinate 50 mg XL Tab PO SCH (11:16)
[2017-10-09] MEDS: MethylPREDNISolone 40 mg Vial IVP SCH ×2 (11:19→21:15)
--- NOTE | 2017-10-09 20:02 | CP.PCM.PN ---
Subjective - Date & Time of Evaluation Date of Evaluation: 10/08/17 Time of Evaluation: 20:04 - Subjective Subjective: Patient still feeling, and afraid of the pneumonia. She is concerned that the going home probably will making her more sick. Her oxygen is seems to be better. I was able to ambulate with the patient, at her wound base patient was able to walk more than 50 yard. And her oxygen desaturation was nearly 89% but heartbeat is better, respiration rate was normal. Clinical examination is unremarkable otherwise. No wheezing noted I advised the patient to stay 1 more day. We will taper the Solu-Medrol 20 mg twice a day. Monitor antibiotic. Will follow-up the patient Objective - Vital Signs/Intake and Output Vital Signs (last 24 hours): Temp Pulse Resp BP Pulse Ox 98.1 F 81 20 138/78 95 10/09/17 16:00 10/09/17 16:00 10/09/17 16:00 10/09/17 16:00 10/09/17 16:00 - Medications Medications: Current Medications Albuterol/Ipratropium (Duoneb 3 Mg/0.5 Mg (3 Ml) Ud) 3 ml INH RQ6 [facility] Last Admin: 10/09/17 19:51 Dose: 3 ml Amlodipine Besylate (Norvasc) 2.5 mg PO DAILY [facility] Last Admin: 10/09/17 11:13 Dose: 2.5 mg Clopidogrel Bisulfate (Plavix) 75 mg PO DAILY [facility] Last Admin: 10/09/17 11:13 Dose: 75 mg Ezetimibe (Zetia) 10 mg PO DAILY [facility] Last Admin: 10/09/17 11:15 Dose: 10 mg Famotidine (Pepcid) 20 mg PO BID [facility] Last Admin: 10/09/17 17:35 Dose: 20 mg Fluticasone Propionate (Flonase) 1 spr MARYANA BID [facility] Last Admin: 10/09/17 17:37 Dose: 1 spr Folic Acid (Folic Acid) 1 mg PO DAILY [facility] Last Admin: 10/09/17 11:13 Dose: 1 mg Azithromycin 500 mg/ Sodium (Chloride) 250 mls @ 167 mls/hr IVPB Q24H [facility] PRN Reason: Protocol Last Admin: 10/09/17 11:14 Dose: 167 mls/hr Ceftriaxone Sodium 1 gm/ (Sodium Chloride) 100 mls @ 100 mls/hr IVPB DAILY [facility] PRN Reason: Protocol Last Admin: 10/09/17 11:12 Dose: 100 mls/hr Insulin Human Regular (Novolin R) 0 unit SC ACHS [facility] PRN Reason: Protocol Last Admin: 10/09/17 17:34 Dose: 2 unit Metformin HCl (Glucophage) 500 mg PO BID [facility] Last Admin: 10/09/17 17:35 Dose: 500 mg Methylprednisolone (Solu-Medrol) 20 mg IVP Q12 [facility] Last Admin: 10/09/17 11:19 Dose: 20 mg Metoprolol Succinate (Toprol Xl) 50 mg PO DAILY [facility] Last Admin: 10/09/17 11:16 Dose: 50 mg Rosuvastatin Calcium (Crestor) 10 mg PO HS [facility] Last Admin: 10/08/17 21:40 Dose: 10 mg Fluticasone/Salmeterol (Advair Diskus 500/50) 1 puff INH RQ12 [facility] Last Admin: 10/09/17 19:51 Dose: 1 puff - Labs Labs: 10/08/17 11:48 10/08/17 11:48 PT 10.7 SECONDS (9.7-12.2) 10/08/17 11:48 INR 1.0 10/08/17 11:48 APTT 28 SECONDS (21-34) 10/08/17 11:48
--- NOTE | 2017-10-09 20:08 | CP.PCM.PN ---
Subjective - Date & Time of Evaluation Date of Evaluation: 10/09/17 Time of Evaluation: 20:06 - Subjective Subjective: Patient definitely looking better today. No fever noted. Denies any chills. Patient is having walker to walk now. Leg swelling negative. Cough negative. Vital signs otherwise stable, room air oxygen saturation is 96% on at rest. While walking saturation is slight drop noted but stable Chest clear Yesterday labs reviewed In my opinion patient is clinically stable. She will continue the IV corticosteroid 1 more dose tonight and tomorrow morning. Following that she can be discharged home Upon discharge patient will continue DuoNeb nebulizer Proventil HFA Singular 10 mg daily Prednisone 20 mg daily for 5 days Zithromax 500 mg daily for 5 days She will continue rest of the medication. Advair 250/50 daily. She will follow-up in my office after the discharge within a week. Objective - Vital Signs/Intake and Output Vital Signs (last 24 hours): Temp Pulse Resp BP Pulse Ox 98.1 F 81 20 138/78 95 10/09/17 16:00 10/09/17 16:00 10/09/17 16:00 10/09/17 16:00 10/09/17 16:00 - Medications Medications: Current Medications Albuterol/Ipratropium (Duoneb 3 Mg/0.5 Mg (3 Ml) Ud) 3 ml INH RQ6 [facility] Last Admin: 10/09/17 19:51 Dose: 3 ml Amlodipine Besylate (Norvasc) 2.5 mg PO DAILY [facility] Last Admin: 10/09/17 11:13 Dose: 2.5 mg Clopidogrel Bisulfate (Plavix) 75 mg PO DAILY [facility] Last Admin: 10/09/17 11:13 Dose: 75 mg Ezetimibe (Zetia) 10 mg PO DAILY [facility] Last Admin: 10/09/17 11:15 Dose: 10 mg Famotidine (Pepcid) 20 mg PO BID [facility] Last Admin: 10/09/17 17:35 Dose: 20 mg Fluticasone Propionate (Flonase) 1 spr MARYANA BID [facility] Last Admin: 10/09/17 17:37 Dose: 1 spr Folic Acid (Folic Acid) 1 mg PO DAILY [facility] Last Admin: 10/09/17 11:13 Dose: 1 mg Azithromycin 500 mg/ Sodium (Chloride) 250 mls @ 167 mls/hr IVPB Q24H [facility] PRN Reason: Protocol Last Admin: 10/09/17 11:14 Dose: 167 mls/hr Ceftriaxone Sodium 1 gm/ (Sodium Chloride) 100 mls @ 100 mls/hr IVPB DAILY [facility] PRN Reason: Protocol Last Admin: 10/09/17 11:12 Dose: 100 mls/hr Insulin Human Regular (Novolin R) 0 unit SC ACHS [facility] PRN Reason: Protocol Last Admin: 10/09/17 17:34 Dose: 2 unit Metformin HCl (Glucophage) 500 mg PO BID [facility] Last Admin: 10/09/17 17:35 Dose: 500 mg Methylprednisolone (Solu-Medrol) 20 mg IVP Q12 [facility] Last Admin: 10/09/17 11:19 Dose: 20 mg Metoprolol Succinate (Toprol Xl) 50 mg PO DAILY [facility] Last Admin: 10/09/17 11:16 Dose: 50 mg Rosuvastatin Calcium (Crestor) 10 mg PO HS [facility] Last Admin: 10/08/17 21:40 Dose: 10 mg Fluticasone/Salmeterol (Advair Diskus 500/50) 1 puff INH RQ12 [facility] Last Admin: 10/09/17 19:51 Dose: 1 puff - Labs Labs: 10/08/17 11:48 10/08/17 11:48 PT 10.7 SECONDS (9.7-12.2) 10/08/17 11:48 INR 1.0 10/08/17 11:48 APTT 28 SECONDS (21-34) 10/08/17 11:48
[2017-10-10] MEDS: Albuterol-Ipratrop 3 mg / 0.5 (3 ml) UD INH SCH ×3 (02:17→13:09)
[2017-10-10] MEDS: Fluticasone-Salmeterol 500-50mcg Diskus INH SCH (07:18)
[2017-10-10] MEDS: (Novolin R) Insulin Human Regular 100 units/ml vial SC SCH ×2 (08:00→12:25)
[2017-10-10 08:01] VITALS: BP 137/65; PULSE 82; TEMP 98.3; O2SAT 97
--- NOTE | 2017-10-10 09:30 | CP.PCM.DIS ---
Provider - Provider Date of Admission: 10/04/17 16:57 Attending physician: Jolene Mueller MD Time Spent in preparation of Discharge (in minutes): 45 Hospital Course - Lab Results Lab Results: Micro Results 10/08/17 22:28 Sputum Gram Stain - Final 10/03/17 17:25 Blood Blood Culture - Final NO GROWTH AFTER 5 DAYS 10/03/17 17:25 Blood Gram Stain - Final TEST NOT PERFORMED 10/03/17 17:15 Blood Blood Culture - Final NO GROWTH AFTER 5 DAYS 10/03/17 17:15 Blood Gram Stain - Final TEST NOT PERFORMED 10/03/17 17:53 Urine Urine Culture - Final <10,000 CFU/ML. MULTIPLE SPECIES. PROBABLE CONTAMINATION. Most Recent Lab Values WBC 15.7 K/uL (4.8-10.8) H 10/08/17 11:48 RBC 4.30 Mil/uL (3.80-5.20) 10/08/17 11:48 Hgb 8.8 g/dL (11.0-16.0) L 10/08/17 11:48 Hct 28.1 % (34.0-47.0) L 10/08/17 11:48 MCV 65.3 fL (81.0-99.0) L 10/08/17 11:48 MCH 20.4 pg (27.0-31.0) L 10/08/17 11:48 MCHC 31.3 g/dL (33.0-37.0) L 10/08/17 11:48 RDW 16.4 % (11.5-14.5) H 10/08/17 11:48 Plt Count 430 K/uL (130-400) H 10/08/17 11:48 MPV 7.2 fL (7.2-11.7) 10/08/17 11:48 Neut % (Auto) 83.6 % (50.0-75.0) H 10/08/17 11:48 Lymph % (Auto) 10.7 % (20.0-40.0) L 10/08/17 11:48 [place] % (Auto) 5.5 % (0.0-10.0) 10/08/17 11:48 Eos % (Auto) 0.0 % (0.0-4.0) 10/08/17 11:48 Baso % (Auto) 0.2 % (0.0-2.0) 10/08/17 11:48 Neut # (Auto) 13.2 K/uL (1.8-7.0) H 10/08/17 11:48 Lymph # (Auto) 1.7 K/uL (1.0-4.3) 10/08/17 11:48 [place] # (Auto) 0.9 K/uL (0.0-0.8) H 10/08/17 11:48 Eos # (Auto) 0.0 K/uL (0.0-0.7) 10/08/17 11:48 Baso # (Auto) 0.0 K/uL (0.0-0.2) 10/08/17 11:48 ESR 45 mm/hr (0-20) H 10/08/17 11:48 PT 10.7 SECONDS (9.7-12.2) 10/08/17 11:48 INR 1.0 10/08/17 11:48 APTT 28 SECONDS (21-34) 10/08/17 11:48 Puncture Site Rr 10/03/17 17:21 pCO2 33 mm/Hg (35-45) L 10/03/17 17:21 pO2 65 mm/Hg (80-100) L 10/03/17 17:21 HCO3 25.1 mmol/L (21-28) 10/03/17 17:21 ABG pH 7.46 (7.35-7.45) H 10/03/17 17:21 ABG Total CO2 24.5 mmol/L (22-28) 10/03/17 17:21 ABG O2 Saturation 95.4 % (95-98) 10/03/17 17:21 ABG Base Excess 0.3 mmol/L (-2.0-3.0) 10/03/17 17:21 Boom Test Po 10/03/17 17:21 ABG Potassium 3.1 mmol/L (3.6-5.2) L 10/03/17 17:21 A-a O2 Difference 93.0 mm/Hg 10/03/17 17:21 Respiratory Index 1.4 10/03/17 17:21 Sodium 138.0 mmol/l (132-148) 10/03/17 17:21 Chloride 107.0 mmol/L (98-107) 10/03/17 17:21 Glucose 92 mg/dl (65-105) 10/03/17 17:21 Lactate 1.0 mmol/L (0.7-2.1) 10/03/17 17:21 Liter Flow 2.0 10/03/17 17:21 FiO2 28.0 % 10/03/17 17:21 Sodium 142 mmol/L (132-148) 10/08/17 11:48 Potassium 3.9 mmol/L (3.6-5.2) 10/08/17 11:48 Chloride 101 mmol/L (98-107) 10/08/17 11:48 Carbon Dioxide 33 mmol/L (22-30) H 10/08/17 11:48 Anion Gap 12 (10-20) 10/08/17 11:48 BUN 19 mg/dL (7-17) H 10/08/17 11:48 Creatinine 0.7 mg/dL (0.7-1.2) 10/08/17 11:48 Est GFR ( Amer) > 60 10/08/17 11:48 Est GFR (Non-Af Amer) > 60 10/08/17 11:48 POC Glucose (mg/dL) 149 mg/dL (65-110) H 10/10/17 07:11 Random Glucose 120 mg/dL (65-105) H 10/08/17 11:48 Calcium 9.7 mg/dl (8.6-10.4) 10/08/17 11:48 Phosphorus 3.4 mg/dL (2.5-4.5) 10/08/17 11:48 Magnesium 1.6 mg/dL (1.6-2.3) 10/08/17 11:48 Total Bilirubin 0.4 mg/dL (0.2-1.3) 10/08/17 11:48 AST 30 U/L (14-36) 10/08/17 11:48 ALT 40 U/L (9-52) 10/08/17 11:48 Alkaline Phosphatase 73 U/L (38-126) 10/08/17 11:48 Lactate Dehydrogenase 952 U/L (313-618) H 10/08/17 11:48 C-Reactive Protein 16.80 mg/L (0.0-9.9) H 10/08/17 11:48 Total Protein 7.0 g/dL (6.3-8.3) 10/08/17 11:48 Albumin 3.8 g/dL (3.5-5.0) 10/08/17 11:48 Globulin 3.3 gm/dL (2.2-3.9) 10/08/17 11:48 Albumin/Globulin Ratio 1.2 (1.0-2.1) 10/08/17 11:48 Procalcitonin 0.29 NG/ML (0.19-0.49) 10/06/17 06:32 Arterial Blood Potassium 3.1 mmol/L (3.6-5.2) L 10/03/17 17:21 Urine Color Yellow (YELLOW) 10/03/17 17:53 Urine Clarity Hazy (Clear) 10/03/17 17:53 Urine pH 5.0 (5.0-8.0) 10/03/17 17:53 Ur Specific [place] 1.023 (1.003-1.030) 10/03/17 17:53 Urine Protein 2+ mg/dL (NEGATIVE) H 10/03/17 17:53 Urine Glucose (UA) Normal mg/dL (Normal) 10/03/17 17:53 Urine Ketones Negative mg/dL (NEGATIVE) 10/03/17 17:53 Urine Blood Negative (NEGATIVE) 10/03/17 17:53 Urine Nitrate Negative (NEGATIVE) 10/03/17 17:53 Urine Bilirubin Negative (NEGATIVE) 10/03/17 17:53 Urine Urobilinogen 2.0 mg/dL (0.2-1.0) H 10/03/17 17:53 Ur Leukocyte Esterase 3+ Dotty/uL (Negative) H 10/03/17 17:53 Urine WBC (Auto) 11 /hpf (0-5) H 10/03/17 17:53 Urine RBC (Auto) 1 /hpf (0-3) 10/03/17 17:53 Ur Squamous Epith Cells 1 /hpf (0-5) 10/03/17 17:53 Urine Bacteria Rare (<OCC) 10/03/17 17:53 Hyaline Casts 3-5 /lpf (0-2) H 10/03/17 17:53 - Hospital Course Hospital Course: Chief complaint: Cough shortness of breath HPI: 72-year-old female with a history of hypertension, CAD, cardiac stent, hypercholesterolemia, asthma, multiple allergies and osteoarthritis, rheumatoid arthritis came to the emergency room, following the patient was seen in my office. Patient was complaining of increasing fever, chills, 3 days duration. Patient initially started having some mild soreness of throat. But gradually got worse, chills noted, sweating present. She was not able to bleed. She came into my office, with the severe high-grade fever, and also hypoxia, I sent the patient to the emergency room immediately. Cough noted, but mostly dry, occasionally mucus noted. The mucus is thick yellow colored. Chest discomfort and chest pain noted with the cough. Tachycardia mildly noted. She denies any nausea, no diarrhea no vomiting no rash noted. She did not have any recent travel Past medical history: Hypertension, CAD, stent, hypercholesterolemia, asthma, multiple allergies, osteoarthritis, rheumatoid arthritis. Surgical history: Patient has a stent in the RCA. Patient had multiple endoscopy and a colonoscopy. Patient has multiple allergies including iodine, seasonal allergy, pollens, phenylenediamine, sulfa, cat danders. Personal history: Non-smoker nonalcoholic functional capacity is normal Family history noncontributory Review of system: Patient is having headache, cough, wheezing, chest tightness, shortness of breath, fever, chills, for 3-4 days duration. Patient has a multiple allergies in the past. Chest pain with the cough noted On examination: Patient noted to have a hypoxia at room air. Supplemental oxygen improves the oxygenation. Vital signs are stable otherwise. Mild tachycardia and high-grade fever noted. Chest a minimal expiratory bilateral wheezing noted irregular heart sound. Abdomen nontender. Pedal edema negative Labs reviewed Chest x-ray nonspecific. Labs otherwise nonspecific. Assessment and recommendation: 72-year-old female with multiple medical history including CAD's hypertension hypercholesterolemia status post a stent. Patient has rheumatoid arthritis, currently patient is also taking immunosuppressive treatment for rheumatoid arthritis in the form of methotrexate. Now admitted with a possible acute pneumonitis, pneumonia. We will get a CT scan of the chest. Antibiotic. Solu-Medrol. Oxygen supplementation. DVT GI prophylaxis. We will closely monitor. Patient was hospitalized with the new diagnosis of acute nonspecific pneumonia. Hospital course. Patient started on intravenous Rocephin, and Zithromax. Also started on intravenous corticosteroid. During the course of few days patient was not improving, she was hypoxic even after walking. But slowly her condition improved. Repeat chest x-ray showing evidence of no infiltrate. Mildly mild elevation of the LDH noted. Inflammatory markers on the high side. Tapering of steroids started. Clinically patient is stable. Room air oxygen saturation 97%. Less cough noted, no wheezing at this time. Patient will be discharged home today. She will follow-up in 1 week She will continue the Zithromax for 5 days. Prednisone for 5 days. Continue the inhaled corticosteroid, albuterol, ProAir HFA. And will follow the patient Final diagnosis: Acute nonspecific pneumonia. Rheumatoid lung likely. Hypertension. Diabetes. Drug-induced. Rheumatoid arthritis. CAD, hypertension. Discharge Plan - Discharge Medications Prescriptions: Fluticasone/Salmeterol 500/50 [Advair Diskus 500/50] 1 puff INH RQ12 #30 puff Albuterol/Ipratropium [Duoneb 3 mg/0.5 mg (3 ml) UD] 3 ml INH RQ6 #120 neb Fluticasone Propionate [Flonase] 1 spr MARYANA BID #1 bottle metFORMIN [glucOPHAGE] 500 mg PO DAILY #30 tab Insulin Human Regular [Novolin R] 500 mg PO DAILY #30 unit predniSONE [predniSONE Tab] 20 mg PO DAILY #5 tab Azithromycin [Zithromax] 500 mg PO DAILY #5 tab - Follow Up Plan Condition: STABLE Disposition: HOME/ ROUTINE
[2017-10-10] MEDS: Metoprolol Succinate 50 mg XL Tab PO SCH (09:51)
[2017-10-10] MEDS: Azithromycin 500 MG in Sodium Chloride 0.9% 250 ML IVPB SCH (09:52)
[2017-10-10] MEDS: MethylPREDNISolone 40 mg Vial IVP SCH (09:56)
[2017-10-10] MEDS: Fluticasone Nasal 50 mcg/Spray NAS SCH (09:58)
--- NOTE | 2017-10-11 11:09 | CARD ---
APPROVED REPORT Date of service: 10/06/2017 EKG Measurement Heart [id number] <Conclusion> Normal sinus rhythm Normal ECG
== END 2017-10-10 15:58 | disposition home or self-care (01) | DRG 190 ==
LOC: C.ER 15:52 → C.9E 18:31 → C.3T 20:09 → OBSVTOIN 10-04 16:57
PROVIDERS: ADMIT Internal Medicine; ATTEND Internal Medicine
DX: J44.0 Chronic obstructive pulmonary disease with (acute) lower respiratory infection (principal); J18.9 Pneumonia, unspecified organism; R00.0 Tachycardia, unspecified; E78.00 Pure hypercholesterolemia, unspecified; D86.9 Sarcoidosis, unspecified; I25.10 Atherosclerotic heart disease of native coronary artery without angina pectoris; E09.9 Drug or chemical induced diabetes mellitus without complications; I10 Essential (primary) hypertension; M05.10 Rheumatoid lung disease with rheumatoid arthritis of unspecified site; R09.02 Hypoxemia; Z88.2 Allergy status to sulfonamides; Z95.5 Presence of coronary angioplasty implant and graft; Z79.4 Long term (current) use of insulin

== ENCOUNTER 2018-03-21 17:23 | Outpatient (CLI) | payer MEDICARE, OTHER | END 2018-03-21 17:24 | disposition home or self-care (01) | LOC: C.RADIC 17:23 | DX: J42 Unspecified chronic bronchitis (principal) ==

== ENCOUNTER 2018-04-08 14:30 | Outpatient (CLI) | payer MEDICARE, OTHER | END 2018-04-08 14:31 | disposition home or self-care (01) | LOC: C.CTH 14:30 ==

== ENCOUNTER 2018-04-10 11:39 | Inpatient (IN) | payer MEDICARE, OTHER ==
[2018-04-10 11:40] VITALS: BMI 26.2
[2018-04-10] MEDS ORDERED: Sodium Chloride 0.9% 1,000 ML IV ONE (12:36)
[2018-04-10 12:46] LABS: BASO # 0.2 K/uL (0.0-0.2); BASO % 1.5 % (0.0-2.0); EOS # 0.1 K/uL (0.0-0.7); EOS % 1.1 % (0.0-4.0); HEMOGLOBIN 9.3 g/dL (11.0-16.0); LYMPH # 1.8 K/uL (1.0-4.3); LYMPH % 14.3 % (20.0-40.0); MEAN CORPUSCULAR HEMOGLOBIN 19.6 pg (27.0-31.0); MEAN CORPUSCULAR HGB CONC 30.1 g/dL (33.0-37.0); MEAN PLATELET VOLUME 6.7 fL (7.2-11.7); MONO % 7.7 % (0.0-10.0); NEUT # 9.3 K/uL (1.8-7.0); NEUT % 75.4 % (50.0-75.0); RBC 4.73 Mil/uL (3.80-5.20); RED CELL DISTRIBUTION WIDTH 16.9 % (11.5-14.5); WHITE BLOOD COUNT 12.3 K/uL (4.8-10.8)
[2018-04-10 12:49] LABS: MEAN CELL VOLUME 65.2 fL (81.0-99.0)
[2018-04-10 13:05] LABS: ALB/GLOB RATIO 1.3 (1.0-2.1); ALBUMIN 4.1 g/dL (3.5-5.0); ALT/SGPT 13 U/L (9-52); AST/SGOT 26 U/L (14-36); BLOOD UREA NITROGEN 15 mg/dL (7-17); CALCIUM 8.9 mg/dl (8.6-10.4); GFR NON-AFRICAN AMERICAN > 60
--- NOTE | 2018-04-10 13:19 | RAD ---
HISTORY: SOB COMPARISON: Chest x-ray performed 03/21/18 TECHNIQUE: Chest PA and lateral FINDINGS: Examination limited by habitus. LUNGS: Persistent but decreased right lower lobe infiltrate. Right hilar prominence. Please note that chest x-ray has limited sensitivity for the detection of pulmonary masses. PLEURA: No significant pleural effusion identified. No definite pneumothorax . CARDIOVASCULAR: Cardiomegaly. Atherosclerotic calcifications present. OSSEOUS STRUCTURES: No acute osseous abnormality identified. VISUALIZED UPPER ABDOMEN: Unremarkable. OTHER FINDINGS: None. IMPRESSION: Persistent but decreased right lower lobe infiltrate. Recommend continued follow-up to complete resolution. Right hilar prominence.
[2018-04-10 13:21] LABS: SQUAMOUS EPITHIAL 4 /hpf (0-5); URINE BACTERIA RARE (<OCC); URINE BILIRUBIN NEGATIVE (NEGATIVE); URINE BLOOD NEGATIVE (NEGATIVE); URINE CLARITY Clear (Clear); URINE COLOR Yellow (YELLOW); URINE GLUCOSE (UA) NORMAL (Normal); URINE LEUKOCYTE ESTERASE TRACE Leu/uL (Negative); URINE PROTEIN NEGATIVE (NEGATIVE); URINE UROBILINOGEN NORMAL mg/dL (0.2-1.0)
[2018-04-10] MEDS ORDERED: Sodium Chloride 0.9% 1,000 ML ONE (13:22)
--- NOTE | 2018-04-10 13:23 | C.PDOC ---
History Of Present Illness 73 year old female presents to the ED after being sent by her PMD for evaluation of worsening pneumonia. Patient reports experiencing fever, chills and cough for around two weeks. She was evaluated by Dr. Mueller, and underwent CXR. She recently underwent a CT scan, which was abnormal and showed her pneumonia progressing. Patient states she was placed on antibiotics without significant improvement. She reports history of pneumonia in September, and was a patient for over one week. She denies nausea, vomiting, chest pain, and shortness of breath. Time Seen by Provider: 04/10/18 12:13 Chief Complaint (Nursing): Cough, Cold, Congestion History Per: Patient History/Exam Limitations: no limitations Onset/Duration Of Symptoms: Persistent, Other (two weeks ) Current Symptoms Are (Timing): Still Present Additional History Per: Patient Past Medical History Reviewed: Historical Data, Nursing Documentation, Vital Signs Vital Signs: Last Vital Signs Temp 98.3 F 04/10/18 11:48 Pulse 82 04/10/18 11:48 Resp 18 04/10/18 11:48 BP 130/96 H 04/10/18 11:48 Pulse Ox 95 04/10/18 11:48 - Medical History PMH: Anemia, Anxiety, Arthritis, Asthma, COPD, Gastritis, HTN, Hypercholesterolemia, Rheumatoid Arthritis Denies: Chronic Kidney Disease Surgical History: Coronary Stent, Endoscopy - [facility] Procedures CARDIAC STRESS TEST NEC (07/06/14) RT & LT HEART ANGIOCARD (10/09/12) RT/LEFT HEART CARD CATH (10/09/12) Family History: States: Unknown Family Hx - Social History Hx Tobacco Use: No Hx Alcohol Use: No Hx Substance Use: No - Immunization History Hx Tetanus Toxoid Vaccination: No Hx Influenza Vaccination: Yes Hx Pneumococcal Vaccination: No Review Of Systems Constitutional: Positive for: Fever, Chills Cardiovascular: Negative for: Chest Pain Respiratory: Positive for: Cough. Negative for: Shortness of Breath Gastrointestinal: Negative for: Nausea, Vomiting Physical Exam - Physical Exam Appears: Non-toxic, No Acute Distress Skin: Normal Color, Warm, Dry Head: Atraumatic, Normacephalic Eye(s): bilateral: Normal Inspection Oral Mucosa: Moist Neck: Supple Chest: Symmetrical, No Deformity, No Tenderness Cardiovascular: Rhythm Regular, No Murmur Respiratory: Normal Breath Sounds, No Rales, No Rhonchi, No Wheezing, Other (cough noted) Extremity: Normal ROM, Capillary Refill (less than 2 seconds ) Neurological/Psych: Oriented x3, Normal Speech, Normal Cognition ED Course And Treatment - Laboratory Results Result Diagrams: 04/10/18 12:42 04/10/18 12:42 Lab Results: Total Bilirubin 0.6 mg/dL (0.2-1.3) 04/10/18 12:42 AST 26 U/L (14-36) 04/10/18 12:42 ALT 13 U/L (9-52) 04/10/18 12:42 Alkaline Phosphatase 67 U/L (38-126) 04/10/18 12:42 Total Protein 7.4 g/dL (6.3-8.3) 04/10/18 12:42 Albumin 4.1 g/dL (3.5-5.0) 04/10/18 12:42 Globulin 3.3 gm/dL (2.2-3.9) 04/10/18 12:42 Albumin/Globulin Ratio 1.3 (1.0-2.1) 04/10/18 12:42 Urine Color Yellow (YELLOW) 04/10/18 13:06 Urine Clarity Clear (Clear) 04/10/18 13:06 Urine pH 7.0 (5.0-8.0) 04/10/18 13:06 Ur Specific [place] 1.015 (1.003-1.030) 04/10/18 13:06 Urine Protein Negative mg/dL (NEGATIVE) 04/10/18 13:06 Urine Glucose (UA) Normal mg/dL (Normal) 04/10/18 13:06 Urine Ketones Negative mg/dL (NEGATIVE) 04/10/18 13:06 Urine Blood Negative (NEGATIVE) 04/10/18 13:06 Urine Nitrate Negative (NEGATIVE) 04/10/18 13:06 Urine Bilirubin Negative (NEGATIVE) 04/10/18 13:06 Urine Urobilinogen Normal mg/dL (0.2-1.0) 04/10/18 13:06 Ur Leukocyte Esterase Trace Dotty/uL (Negative) 04/10/18 13:06 Urine WBC (Auto) 1 /hpf (0-5) 04/10/18 13:06 Urine RBC (Auto) < 1 /hpf (0-3) 04/10/18 13:06 Ur Squamous Epith Cells 4 /hpf (0-5) 04/10/18 13:06 Urine Bacteria Rare (<OCC) 04/10/18 13:06 Lab Interpretation: No Acute Changes ECG: Interpreted By Me ECG Rhythm: Sinus Rhythm Rate From EC O2 Sat by Pulse Oximetry: 95 (on RA ) Pulse Ox Interpretation: Normal - Radiology CXR: Viewed By Me, Read By Radiologist (FINDINGS:) - Other Rad CXR X-Ray: Viewed By Me, Read By Radiologist Interpretation: HISTORY: SOB. COMPARISON: Chest x-ray performed 03/21/18. TECHNIQUE: Chest PA and lateral. FINDINGS: Examination limited by habitus. L UNGS: Persistent but decreased right lower lobe infiltrate. Right hilar prominence. Please note that chest x-ray has limited sensitivity for the detection of pulmonary masses. PLEURA: No significant pleural effusion identified. No definite pneumothorax . CARDIOVASCULAR: Cardiomegaly. Atheros clerotic calcifications present. OSSEOUS STRUCTURES: No acute osseous abnormality identified. VISUALIZED UPPER ABDOMEN: Unremarkable. OTHER FINDINGS: None. IMPRESSION: Persistent but decreased right lower lobe infiltrate. Recommend continued follow-up to complete resolution. Right hilar prominence. Progress Note: Bloodwork, urinalysis, CXR, EKG, flu swab ordered and reviewed. IV Fluids given. Treated with zosyn IV Reassessment Condition: Unchanged - Physician Consult Information Physician Contacted: Jolene Mueller Outcome Of Conversation: admit Disposition Discussed With : Jolene Mueller Doctor Will See Patient In The: Hospital - Disposition Disposition: HOSPITALIZED Disposition Time: 15:00 Condition: STABLE - Clinical Impression Clinical Impression: Pneumonia - PA / FORESTRY INSTRUCTOR / Resident Statement MD/DO has reviewed & agrees with the documentation as recorded. - Scribe Statement The provider has reviewed the documentation as recorded by the Scribe (Nano Monaco) All medical record entries made by the Scribe were at my direction and personally dictated by me. I have reviewed the chart and agree that the record accurately reflects my personal performance of the history, physical exam, medical decision making, and the department course for this patient. I have also personally directed, reviewed, and agree with the discharge instructions and disposition. Decision To Admit - Pt Status Changed To: Hospital Disposition Of: Inpatient - Admit Certification Admit to Inpatient:: After my assessment, the patient will require hospitalization for at least two midnights. This is because of the severity of symptoms shown, intensity of services needed, and/or the medical risk in this p atient being treated as an outpatient. - InPatient: Physician Admission Certification: I certify that this patient requires 2 or more midnights of care for the following reason:: Pneumonia - . Bed Request Type: Regular Admitting Physician: Jolene Mueller Patient Diagnosis: Pneumonia
[2018-04-10] MEDS ORDERED: Piperacillin/Tazobact 3.375 gm 100 ML IV STA (14:27)
[2018-04-10 16:51] VITALS: RESP 20
[2018-04-10] MEDS ORDERED: Albuterol-Ipratrop 3 mg / 0.5 (3 ml) UD INH SCH (20:00)
[2018-04-10] MEDS ORDERED: MethylPREDNISolone 40 mg Vial IVP STA (20:03)
--- NOTE | 2018-04-10 20:10 | CP.PCM.HP ---
History of Present Illness - History of Present Illness History of Present Illness: Chief complaint: Cough, shortness of breath HPI: 73-year-old female with a history of hypertension, CAD, cardiac stent, hypercholesterolemia, asthma, multiple allergies and osteoarthritis, rheumatoid arthritis came to the emergency room, following the patient was seen in my office. The patient 3 months ago admitted to the hospital with the pneumonia. At that time with antibiotic and intravenous corticosteroid pneumonia got better. There is near complete resolution of the pneumonia in the recent CAT scan noted. But the patient started having increasing pain in the left side of the chest area in the back. She was also having some cough with mucus production. I repeated the x-ray, showing evidence of worsening pneumonia, and a CAT scan also showing evidence of worsening pneumonia on the left lung lower region. Because of the worsening pneumonia I advised the patient to get admitted to the hospital. Patient still continues to cough. Cough with mucus production noted. She has a chills Low-grade fever noted. Poor appetite noted at times. Sweating at times noted. Denies any nausea no vomiting no abdominal pain. Patient is being treated for rheumatoid arthritis with methotrexate. Patient received also outpatient p.o. antibiotic and steroid, with no improvement. Past medical history: Hypertension, CAD, stent, hypercholesterolemia, asthma, multiple allergies, osteoarthritis, rheumatoid arthritis. Surgical history: Patient has a stent in the RCA. Patient had multiple endoscopy and a colonoscopy. Patient has multiple allergies including iodine, seasonal allergy, pollens, phenylenediamine, sulfa, cat danders. Personal history: Non-smoker nonalcoholic functional capacity is normal Family history noncontributory Review of system: Patient is having headache, cough, wheezing, chest tightness, shortness of [place] ath, fever, chills, Patient has a multiple allergies in the past. Chest pain with the cough noted On examination: Patient noted to have a hypoxia at room air. Supplemental oxygen improves the oxygenation. Vital signs are stable otherwise. Mild tachycardia and high-grade fever noted. Chest a minimal expiratory bilateral wheezing noted irregular heart sound. Abdomen nontender. Pedal edema negative Patient labs reviewed Elevated WBC noted. But chest x-ray showing left lower lung atelectatic changes, underlying pneumonia likely. Assessment and recommendation: 72-year-old female with multiple medical history including CAD's hypertension hypercholesterolemia status post a stent. Patient has rheumatoid arthritis, currently patient is also taking immunosuppressive treatment for rheumatoid arthritis in the form of methotrexate. Now admitted with a possible acute pneumonitis, pneumonia. We will get a sputum culture Possible bronchoscopic may be needed, or transthoracic needle biopsy may be n eeded. Underlying non-resolving pneumonia likely, and also BOOP possible. We will start the patient on empirical antibiotic. Solu-Medrol. Oxygen supplementation. DVT GI prophylaxis. We will closely monitor. Present on Admission - Present on Admission Any Indicators Present on Admission: No History of DVT/PE: No History of Uncontrolled Diabetes: No Urinary Catheter: No Decubitus Ulcer Present: No Past Patient History - Infectious Disease Hx of Infectious Diseases: None - Past Medical History & Family History Past Medical History?: Yes - Past Social History Smoking Status: Never Smoked - CARDIAC Hx Hypercholesterolemia: Yes Hx Hypertension: Yes - PULMONARY Hx Asthma: Yes Hx Chronic Obstructive Pulmonary Disease (COPD): Yes - NEUROLOGICAL Hx Neurological Disorder: Yes - HEENT Hx HEENT Problems: Yes - RENAL Hx Chronic Kidney Disease: No - ENDOCRINE/METABOLIC Hx Endocrine Disorders: No - HEMATOLOGICAL/ONCOLOGICAL Hx Anemia: Yes Other/Comment: Thalassemia - INTEGUMENTARY Hx Dermatological Problems: No - MUSCULOSKELETAL/RHEUMATOLOGICAL Hx Arthritis: Yes Hx Rheumatoid Arthritis: Yes - GASTROINTESTINAL Hx Gastritis: Yes - GENITOURINARY/GYNECOLOGICAL Hx Genitourinary Disorders: No - PSYCHIATRIC Hx Anxiety: Yes Hx Substance Use: No - SURGICAL HISTORY Hx Coronary Stent: Yes - ANESTHESIA Hx Anesthesia: Yes Hx Anesthesia Reactions: No Hx Malignant Hyperthermia: No Meds Allergies/Adverse Reactions: Allergies Allergy/AdvReac Type Severity Reaction Status Date / Time Iodinated Contrast- Oral and Allergy Intermediate RASH Verified 04/10/18 11:51 IV Dye [Iodinated Contrast Media - IV Dye] nut - unspecified Allergy SWELLING Verified 04/10/18 17:23 cleaning products Allergy SWELLING Uncoded 04/10/18 17:23 Results - Vital Signs Recent Vital Signs: Last Vital Signs Temp 97.7 F 04/10/18 16:30 Pulse 68 04/10/18 16:30 Resp 20 04/10/18 16:30 BP 126/65 04/10/18 16:30 Pulse Ox 95 04/10/18 16:30 - Labs Result Diagrams: 04/10/18 12:42 04/10/18 12:42 Labs: Laboratory Results - last 24 hr 04/10/18 04/10/18 04/10/18 12:42 12:42 13:06 WBC 12.3 H RBC 4.73 Hgb 9.3 L Hct 30.8 L MCV 65.2 L MCH 19.6 L MCHC 30.1 L RDW 16.9 H Plt Count 398 MPV 6.7 L Neut % (Auto) 75.4 H Lymph % (Auto) 14.3 L [place] % (Auto) 7.7 Eos % (Auto) 1.1 Baso % (Auto) 1.5 Neut # (Auto) 9.3 H Lymph # (Auto) 1.8 [place] # (Auto) 1.0 H Eos # (Auto) 0.1 Baso # (Auto) 0.2 Differential Comment Sodium 140 Potassium 4.0 Chloride 104 Carbon Dioxide 28 Anion Gap 11 BUN 15 Creatinine 0.8 Est GFR ( Amer) > 60 Est GFR (Non-Af Amer) > 60 Random Glucose 104 Calcium 8.9 Total Bilirubin 0.6 AST 26 ALT 13 Alkaline Phosphatase 67 Total Protein 7.4 Albumin 4.1 Globulin 3.3 Albumin/Globulin Ratio 1.3 Urine Color Urine Clarity Urine pH Ur Specific [place] Urine Protein Urine Glucose (UA) Urine Ketones Urine Blood Urine Nitrate Urine Bilirubin Urine Urobilinogen Ur Leukocyte Esterase Urine WBC (Auto) Urine RBC (Auto) Ur Squamous Epith Cells Urine Bacteria Influenza Typ A,B (EIA) Negative for flu a/b 04/10/18 13:06 WBC RBC Hgb Hct MCV MCH MCHC RDW Plt Count MPV Neut % (Auto) Lymph % (Auto) [place] % (Auto) Eos % (Auto) Baso % (Auto) Neut # (Auto) Lymph # (Auto) [place] # (Auto) Eos # (Auto) Baso # (Auto) Differential Comment Sodium Potassium Chloride Carbon Dioxide Anion Gap BUN Creatinine Est GFR ( Amer) Est GFR (Non-Af Amer) Random Glucose Calcium Total Bilirubin AST ALT Alkaline Phosphatase Total Protein Albumin Globulin Albumin/Globulin Ratio Urine Color Yellow Urine Clarity Clear Urine pH 7.0 Ur Specific [place] 1.015 Urine Protein Negative Urine Glucose (UA) Normal Urine Ketones Negative Urine Blood Negative Urine Nitrate Negative Urine Bilirubin Negative Urine Urobilinogen Normal Ur Leukocyte Esterase Trace Urine WBC (Auto) 1 Urine RBC (Auto) < 1 Ur Squamous Epith Cells 4 Urine Bacteria Rare Influenza Typ A,B (EIA)
[2018-04-10] MEDS: Tiotropium 18 mcg Cap For Inhalation INH SCH (20:44)
[2018-04-10] MEDS: MethylPREDNISolone 40 mg Vial IVP SCH (21:24)
[2018-04-10] MEDS: Piperacill/Tazo 3.375gm in Dex 3.375 GM/50 ML BAG IVPB SCH (21:32)
[2018-04-11] MEDS: Albuterol-Ipratrop 3 mg / 0.5 (3 ml) UD INH SCH ×5 (01:45→20:53)
[2018-04-11] MEDS: Piperacill/Tazo 3.375gm in Dex 3.375 GM/50 ML BAG IVPB SCH ×3 (06:02→21:41)
[2018-04-11] MEDS: Tiotropium 18 mcg Cap For Inhalation INH SCH (07:00)
[2018-04-11] MEDS: Fluticasone-Vilanterol 200/25mcg Diskus INH SCH (07:00)
[2018-04-11] MEDS: Metoprolol Succinate 25 mg XL Tab PO SCH (10:55)
[2018-04-11] MEDS: MethylPREDNISolone 40 mg Vial IVP SCH ×2 (10:55→21:39)
[2018-04-11 11:10] LABS: EOS % 0.1 % (0.0-4.0); LYMPH # 0.7 K/uL (1.0-4.3); LYMPH % 8.5 % (20.0-40.0); MEAN CELL VOLUME 64.6 fL (81.0-99.0); MEAN CORPUSCULAR HEMOGLOBIN 19.8 pg (27.0-31.0); MEAN CORPUSCULAR HGB CONC 30.7 g/dL (33.0-37.0); MEAN PLATELET VOLUME 7.5 fL (7.2-11.7); MONO # 0.2 K/uL (0.0-0.8); MONO % 2.1 % (0.0-10.0); NEUT # 7.3 K/uL (1.8-7.0); NEUT % 89.3 % (50.0-75.0); NRBC % 0.1 % (0.0-2.0); PLATELET COUNT 412 K/uL (130-400); RBC 4.56 Mil/uL (3.80-5.20); RED CELL DISTRIBUTION WIDTH 16.7 % (11.5-14.5); WHITE BLOOD COUNT 8.2 K/uL (4.8-10.8)
[2018-04-11 11:30] LABS: ALB/GLOB RATIO 1.2 (1.0-2.1); ALT/SGPT 16 U/L (9-52); AST/SGOT 25 U/L (14-36); BLOOD UREA NITROGEN 14 mg/dL (7-17); CALCIUM 8.7 mg/dl (8.6-10.4); GFR NON-AFRICAN AMERICAN > 60
[2018-04-11 12:21] LABS: ANISOCYTOSIS SLIGHT; LYMPHOCYTE 5 % (20-40); MICROCYTOSIS SLIGHT; MONOCYTE 2 % (0-10); NEUTROPHIL 93 % (50-75); PLATELET ESTIMATE SLIGHTLY INCREASED (NORMAL); TOTAL CELLS COUNTED 100
[2018-04-11 12:22] LABS: HYPOCHROMIC MODERATE; OVALOCYTES MODERATE; POIKILOCYTOSIS SLIGHT; TARGET CELLS SLIGHT
[2018-04-11 13:35] LABS: ERYTHROCYTE SEDIMENTATION RATE 60 mm/hr (0-20)
[2018-04-11] MEDS: Promethazine 6.25 MG/5 ML CUP PO PRN (17:37)
--- NOTE | 2018-04-11 20:10 | CARD ---
APPROVED REPORT Date of service: 04/10/2018 EKG Measurement Heart [id number] <Conclusion> Normal sinus rhythm Normal ECG
--- NOTE | 2018-04-11 20:37 | CP.PCM.PN ---
Subjective - Date & Time of Evaluation Date of Evaluation: 04/11/18 Time of Evaluation: 20:35 - Subjective Subjective: Patient this morning was feeling well. But complaining of pain over the right infrascapular region. Pleuritic pain noted. Difficult time in breathing when taking deep breath noted, minimal cough noted. Dry mucous noted. Patient is feeling otherwise well. Vital signs are noted. Mild tachycardia noted. Chest good air entry, but with decreased air entry in the right lower lung noted. Regular heart sounds noted nontender abdomen no pedal edema Labs reviewed Elevated CRP noted, WBC is improving Also pro calcitonin level is negative. Assessment and recommendation: 73-year-old female with a history of CAD hypertension diabetes history of rheumatoid arthritis and a possible lupus disease. Admitted with a non-resolving pneumonia of the right lower lung. Less likely bacterial, but most likely an inflammatory pneumonia, underlying b ronchoalveolar obliterans cannot be ruled out. We will repeat the CAT scan of the chest tomorrow. We will continue the antibiotic and DVT GI prophylaxis and will follow the patient Objective - Vital Signs/Intake and Output Vital Signs (last 24 hours): Temp Pulse Resp BP Pulse Ox 98.0 F 114 H 20 117/67 95 04/11/18 16:08 04/11/18 16:08 04/11/18 16:08 04/11/18 16:08 04/11/18 16:08 - Medications Medications: Current Medications Albuterol/Ipratropium (Duoneb 3 Mg/0.5 Mg (3 Ml) Ud) 3 ml INH Q6 [facility] Last Admin: 04/11/18 13:25 Dose: 3 ml Amlodipine Besylate (Norvasc) 10 mg PO DAILY [facility] Last Admin: 04/11/18 10:54 Dose: 10 mg Clopidogrel Bisulfate (Plavix) 75 mg PO DAILY [facility] Last Admin: 04/11/18 10:55 Dose: 75 mg Ezetimibe (Zetia) 10 mg PO DAILY [facility] Last Admin: 04/11/18 10:54 Dose: 10 mg Famotidine (Pepcid) 20 mg PO DAILY [facility] Last Admin: 04/11/18 10:55 Dose: 20 mg Fluticasone/Vilanterol (Breo Ellipta 200-25 Mcg Inh) 1 puff INH RQD [facility] Last Admin: 04/11/18 07:00 Dose: Not Given Folic Acid (Folic Acid) 1 mg PO DAILY [facility] Last Admin: 04/11/18 10:54 Dose: 1 mg Heparin Sodium (Porcine) (Heparin) 5,000 units SC Q8 [facility] Last Admin: 04/11/18 14:00 Dose: 5,000 units Piperacillin Sod/Tazobactam Sod (Zosyn 3.375 Gm Iv Premix) 3.375 gm in 50 mls @ 100 mls/hr IVPB Q8 [facility]; Protocol Last Admin: 04/11/18 14:00 Dose: 100 mls/hr Methylprednisolone (Solu-Medrol) 40 mg IVP Q12 [facility] Last Admin: 04/11/18 10:55 Dose: 40 mg Metoprolol Succinate (Toprol Xl) 25 mg PO DAILY [facility] Last Admin: 04/11/18 10:55 Dose: 25 mg Pneumococcal Polyvalent Vaccine (Pneumovax 23 Vaccine) 0.5 ml IM .ONCE ONE Stop: 04/12/18 10:01 Promethazine HCl (Phenergan Syrup) 6.25 mg PO Q6 PRN PRN Reason: Cough and congestion Last Admin: 04/11/18 17:37 Dose: 6.25 mg Rosuvastatin Calcium (Crestor) 5 mg PO HS [facility] Last Admin: 04/10/18 21:24 Dose: 5 mg Tiotropium [place] (Spiriva) 18 mcg INH RQ24 [facility] Last Admin: 04/11/18 07:00 Dose: Not Given - Labs Labs: 04/11/18 11:04 04/11/18 11:04
[2018-04-12] MEDS: Albuterol-Ipratrop 3 mg / 0.5 (3 ml) UD INH SCH ×4 (01:40→20:43)
[2018-04-12] MEDS: Promethazine 6.25 MG/5 ML CUP PO PRN ×2 (05:10→17:52)
[2018-04-12] MEDS ORDERED: Albuterol-Ipratrop 3 mg / 0.5 (3 ml) UD INH STA (05:23)
[2018-04-12] MEDS ORDERED: Acetylcysteine 20% Inhal Soln (4ml) INH STA (05:23)
[2018-04-12] MEDS: Piperacill/Tazo 3.375gm in Dex 3.375 GM/50 ML BAG IVPB SCH ×2 (05:58→21:24)
[2018-04-12] MEDS: Tiotropium 18 mcg Cap For Inhalation INH SCH (07:45)
[2018-04-12] MEDS: Fluticasone-Vilanterol 200/25mcg Diskus INH SCH (07:45)
[2018-04-12] MEDS: Metoprolol Succinate 25 mg XL Tab PO SCH (09:40)
[2018-04-12] MEDS: MethylPREDNISolone 40 mg Vial IVP SCH ×2 (09:40→21:23)
[2018-04-12] MEDS ORDERED: Pneumococcal 23-Valent Vaccine IM ONE (10:00)
--- NOTE | 2018-04-12 10:26 | CT ---
Date of service: 04/12/2018 CT chest without IV contrast Indication: pna Technique: Contiguous axial images were obtained through the chest without intravenous contrast enhancement. Sagittal and coronal reconstructions were generated and reviewed. This CT exam was performed using 1 or more of the following dose reduction techniques: Automated exposure control, adjustment of the MAA and/or kV according to patient size, and/or use of iterative reconstruction technique. Radiation dose (DLP): 317.14 MGy-cm. Comparison: Chest x-ray performed 04/10/18, CT chest without contrast performed 04/08/18, CT chest without contrast performed 12/22/17 Findings: Visualized portions of the inferior thyroid gland appear unremarkable. The mediastinal and hilar vascular structures appear within normal limits. Mild cardiomegaly. Coronary artery calcifications. Atherosclerotic calcifications of the aorta. Evidence of right hilar adenopathy, suboptimally assessed due to lack of IV contrast as well as adjacent consolidation. Persistent right lower lobe consolidation. No pleural effusion. No pneumothorax. 4 mm right lower lobe calcified granuloma. Limited visualization of the noncontrast upper abdomen: Splenic calcifications, likely granulomas. 6 x 13 mm partially imaged left renal hypodensity, possibly cyst. Degenerative changes of the spine. Impression: Mild cardiomegaly. Coronary artery calcifications. Persistent right lower lobe consolidation. Recommend continued follow-up upon completion of treatment of acute symptoms in order to assess for complete resolution and exclude underlying neoplasm is nodules have been seen in this region on CT of the chest performed 12/22/17. Evidence of right hilar adenopathy, suboptimally assessed due to lack of IV contrast as well as adjacent consolidation. Recommend attention on follow-up imaging. Evidence of prior granulomatous infection. 6 x 13 mm partially imaged left renal hypodensity, possibly cyst. Renal ultrasound may be considered for further characterization if indicated.
--- NOTE | 2018-04-12 21:32 | CP.PCM.PN ---
Subjective - Date & Time of Evaluation Date of Evaluation: 04/12/18 Time of Evaluation: 21:31 - Subjective Subjective: She was having difficult time in coughing. This morning had an episode of severe shortness of breath. She was having some moderate dizziness after the cough. No mucus production noted. She has no fever or chills. On examination: Vital signs are stable. Chest bilateral diffuse wheezing noted CAT scan of the chest are repeated now, showing slight improvement in the density in the right lower lung field noted. I will continue to watch it. Continue the bronchodilators. Currently on steroid. Antibiotic. Most likely noninfectious inflammatory process at this time, responding with the corticosteroid. On antibiotic. Will follow the patient Objective - Vital Signs/Intake and Output Vital Signs (last 24 hours): Temp Pulse Resp BP Pulse Ox 98.0 F 95 H 20 135/71 95 04/12/18 15:00 04/12/18 15:00 04/12/18 15:00 04/12/18 15:00 04/12/18 15:00 - Medications Medications: Current Medications Albuterol/Ipratropium (Duoneb 3 Mg/0.5 Mg (3 Ml) Ud) 3 ml INH Q6 [facility] Last Admin: 04/12/18 20:43 Dose: 3 ml Amlodipine Besylate (Norvasc) 10 mg PO DAILY [facility] Last Admin: 04/12/18 09:40 Dose: 10 mg Clopidogrel Bisulfate (Plavix) 75 mg PO DAILY [facility] Last Admin: 04/12/18 09:49 Dose: 75 mg Ezetimibe (Zetia) 10 mg PO DAILY [facility] Last Admin: 04/12/18 09:49 Dose: 10 mg Famotidine (Pepcid) 20 mg PO DAILY [facility] Last Admin: 04/12/18 09:40 Dose: 20 mg Fluticasone/Vilanterol (Breo Ellipta 200-25 Mcg Inh) 1 puff INH RQD [facility] Last Admin: 04/12/18 07:45 Dose: 1 puff Folic Acid (Folic Acid) 1 mg PO DAILY [facility] Last Admin: 04/12/18 09:40 Dose: 1 mg Heparin Sodium (Porcine) (Heparin) 5,000 units SC Q8 [facility] Last Admin: 04/12/18 21:25 Dose: 5,000 units Piperacillin Sod/Tazobactam Sod (Zosyn 3.375 Gm Iv Premix) 3.375 gm in 50 mls @ 100 mls/hr IVPB Q8 [facility]; Protocol Last Admin: 04/12/18 21:24 Dose: 100 mls/hr Methylprednisolone (Solu-Medrol) 40 mg IVP Q12 [facility] Last Admin: 04/12/18 21:23 Dose: 40 mg Metoprolol Succinate (Toprol Xl) 25 mg PO DAILY [facility] Last Admin: 04/12/18 09:40 Dose: 25 mg Promethazine HCl (Phenergan Syrup) 6.25 mg PO Q6 PRN PRN Reason: Cough and congestion Last Admin: 04/12/18 17:52 Dose: 6.25 mg Rosuvastatin Calcium (Crestor) 5 mg PO HS [facility] Last Admin: 04/12/18 21:24 Dose: 5 mg Tiotropium [place] (Spiriva) 18 mcg INH RQ24 [facility] Last Admin: 04/12/18 07:45 Dose: 18 mcg - Labs Labs: 04/11/18 11:04 04/11/18 11:04
[2018-04-13] MEDS: Albuterol-Ipratrop 3 mg / 0.5 (3 ml) UD INH SCH ×3 (01:24→13:25)
[2018-04-13] MEDS: Piperacill/Tazo 3.375gm in Dex 3.375 GM/50 ML BAG IVPB SCH ×4 (05:51→21:29)
[2018-04-13] MEDS: Promethazine 6.25 MG/5 ML CUP PO PRN ×2 (06:56→21:40)
[2018-04-13] MEDS: Fluticasone-Vilanterol 200/25mcg Diskus INH SCH (08:40)
[2018-04-13] MEDS: Tiotropium 18 mcg Cap For Inhalation INH SCH (08:40)
[2018-04-13] MEDS: Metoprolol Succinate 25 mg XL Tab PO SCH (10:08)
[2018-04-13] MEDS: MethylPREDNISolone 40 mg Vial IVP SCH ×2 (10:13→21:27)
[2018-04-14] MEDS: Albuterol-Ipratrop 3 mg / 0.5 (3 ml) UD INH SCH ×4 (02:23→22:07)
[2018-04-14] MEDS: Piperacill/Tazo 3.375gm in Dex 3.375 GM/50 ML BAG IVPB SCH ×3 (06:09→21:37)
[2018-04-14] MEDS: Metoprolol Succinate 25 mg XL Tab PO SCH (09:46)
[2018-04-14] MEDS: MethylPREDNISolone 40 mg Vial IVP SCH ×2 (09:46→21:38)
[2018-04-14] MEDS: Promethazine 6.25 MG/5 ML CUP PO PRN ×2 (09:47→21:49)
[2018-04-14] MEDS: Fluticasone-Vilanterol 200/25mcg Diskus INH SCH (10:04)
[2018-04-14] MEDS: Tiotropium 18 mcg Cap For Inhalation INH SCH (10:04)
--- NOTE | 2018-04-14 17:07 | CP.PCM.PN ---
Subjective - Date & Time of Evaluation Date of Evaluation: 04/14/18 Time of Evaluation: 17:07 - Subjective Subjective: Patient is having no chest pain, but upon taking deep breath patient is having more pain. Cough still present, scant mucus noted. No nausea no vomiting. Patient is tolerating the antibiotic, also on intravenous steroid. On examination: Vital signs are stable. 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 Also patient has a history of CAD, hypertension and diabetes. Continue the current treatment. As the patient is having a non-resolving pneumonia will continue the antibiotic. And we will decide about the bronchoscopy tomorrow Objective - Vital Signs/Intake and Output Vital Signs (last 24 hours): Temp Pulse Resp BP Pulse Ox 97.7 F 84 20 135/69 96 04/14/18 16:00 04/14/18 16:00 04/14/18 16:00 04/14/18 16:00 04/14/18 16:00 Intake and Output: 04/14/18 04/14/18 06:59 18:59 Intake Total 750 Balance 750 - Medications Medications: Current Medications Albuterol/Ipratropium (Duoneb 3 Mg/0.5 Mg (3 Ml) Ud) 3 ml INH Q6 [facility] Last Admin: 04/14/18 14:09 Dose: 3 ml Amlodipine Besylate (Norvasc) 10 mg PO DAILY [facility] Last Admin: 04/14/18 09:46 Dose: 10 mg Clopidogrel Bisulfate (Plavix) 75 mg PO DAILY [facility] Last Admin: 04/14/18 09:46 Dose: 75 mg Ezetimibe (Zetia) 10 mg PO DAILY [facility] Last Admin: 04/14/18 09:47 Dose: 10 mg Famotidine (Pepcid) 20 mg PO DAILY [facility] Last Admin: 04/14/18 09:45 Dose: 20 mg Fluticasone/Vilanterol (Breo Ellipta 200-25 Mcg Inh) 1 puff INH RQD [facility] Last Admin: 04/14/18 10:04 Dose: 1 puff Folic Acid (Folic Acid) 1 mg PO DAILY [facility] Last Admin: 04/14/18 09:46 Dose: 1 mg Heparin Sodium (Porcine) (Heparin) 5,000 units SC Q8 [facility] Last Admin: 04/14/18 13:55 Dose: 5,000 units Piperacillin Sod/Tazobactam Sod (Zosyn 3.375 Gm Iv Premix) 3.375 gm in 50 mls @ 100 mls/hr IVPB Q8 [facility]; Protocol Last Admin: 04/14/18 13:55 Dose: 100 mls/hr Methylprednisolone (Solu-Medrol) 40 mg IVP Q12 [facility] Last Admin: 04/14/18 09:46 Dose: 40 mg Metoprolol Succinate (Toprol Xl) 25 mg PO DAILY [facility] Last Admin: 04/14/18 09:46 Dose: 25 mg Promethazine HCl (Phenergan Syrup) 6.25 mg PO Q6 PRN PRN Reason: Cough and congestion Last Admin: 04/14/18 09:47 Dose: 6.25 mg Rosuvastatin Calcium (Crestor) 5 mg PO HS [facility] Last Admin: 04/13/18 21:27 Dose: 5 mg Tiotropium [place] (Spiriva) 18 mcg INH RQ24 [facility] Last Admin: 04/14/18 10:04 Dose: 18 mcg - Labs Labs: 04/11/18 11:04 04/11/18 11:04
--- NOTE | 2018-04-14 17:07 | CP.PCM.PN ---
Subjective - Date & Time of Evaluation Date of Evaluation: 04/13/18 Time of Evaluation: 17:07 - Subjective Subjective: Patient is having no chest pain, but upon taking deep breath patient is having more pain. Cough still present, scant mucus noted. No nausea no vomiting. Patient is tolerating the antibiotic, also on intravenous steroid. On examination: Vital signs are stable. 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 Also patient has a history of CAD, hypertension and diabetes. Continue the current treatment. As the patient is having a non-resolving pneumonia will continue the antibiotic. And we will decide about the bronchoscopy tomorrow or on Sunday Objective - Vital Signs/Intake and Output Vital Signs (last 24 hours): Temp Pulse Resp BP Pulse Ox 97.7 F 84 20 135/69 96 04/14/18 16:00 04/14/18 16:00 04/14/18 16:00 04/14/18 16:00 04/14/18 16:00 Intake and Output: 04/14/18 04/14/18 06:59 18:59 Intake Total 750 Balance 750 - Medications Medications: Current Medications Albuterol/Ipratropium (Duoneb 3 Mg/0.5 Mg (3 Ml) Ud) 3 ml INH Q6 [facility] Last Admin: 04/14/18 14:09 Dose: 3 ml Amlodipine Besylate (Norvasc) 10 mg PO DAILY [facility] Last Admin: 04/14/18 09:46 Dose: 10 mg Clopidogrel Bisulfate (Plavix) 75 mg PO DAILY [facility] Last Admin: 04/14/18 09:46 Dose: 75 mg Ezetimibe (Zetia) 10 mg PO DAILY [facility] Last Admin: 04/14/18 09:47 Dose: 10 mg Famotidine (Pepcid) 20 mg PO DAILY [facility] Last Admin: 04/14/18 09:45 Dose: 20 mg Fluticasone/Vilanterol (Breo Ellipta 200-25 Mcg Inh) 1 puff INH RQD [facility] Last Admin: 04/14/18 10:04 Dose: 1 puff Folic Acid (Folic Acid) 1 mg PO DAILY [facility] Last Admin: 04/14/18 09:46 Dose: 1 mg Heparin Sodium (Porcine) (Heparin) 5,000 units SC Q8 [facility] Last Admin: 04/14/18 13:55 Dose: 5,000 units Piperacillin Sod/Tazobactam Sod (Zosyn 3.375 Gm Iv Premix) 3.375 gm in 50 mls @ 100 mls/hr IVPB Q8 [facility]; Protocol Last Admin: 04/14/18 13:55 Dose: 100 mls/hr Methylprednisolone (Solu-Medrol) 40 mg IVP Q12 [facility] Last Admin: 04/14/18 09:46 Dose: 40 mg Metoprolol Succinate (Toprol Xl) 25 mg PO DAILY [facility] Last Admin: 04/14/18 09:46 Dose: 25 mg Promethazine HCl (Phenergan Syrup) 6.25 mg PO Q6 PRN PRN Reason: Cough and congestion Last Admin: 04/14/18 09:47 Dose: 6.25 mg Rosuvastatin Calcium (Crestor) 5 mg PO HS [facility] Last Admin: 04/13/18 21:27 Dose: 5 mg Tiotropium [place] (Spiriva) 18 mcg INH RQ24 [facility] Last Admin: 04/14/18 10:04 Dose: 18 mcg - Labs Labs: 04/11/18 11:04 04/11/18 11:04
[2018-04-15] MEDS: Piperacill/Tazo 3.375gm in Dex 3.375 GM/50 ML BAG IVPB SCH ×3 (06:26→22:02)
[2018-04-15] MEDS: Albuterol-Ipratrop 3 mg / 0.5 (3 ml) UD INH SCH ×4 (07:45→20:53)
[2018-04-15] MEDS: Tiotropium 18 mcg Cap For Inhalation INH SCH (07:45)
[2018-04-15] MEDS: Fluticasone-Vilanterol 200/25mcg Diskus INH SCH (07:45)
[2018-04-15] MEDS: MethylPREDNISolone 40 mg Vial IVP SCH ×2 (10:12→21:54)
[2018-04-15] MEDS: Metoprolol Succinate 25 mg XL Tab PO SCH (10:12)
[2018-04-15] MEDS: Promethazine 6.25 MG/5 ML CUP PO PRN (22:02)
[2018-04-16] MEDS: Albuterol-Ipratrop 3 mg / 0.5 (3 ml) UD INH SCH ×4 (01:55→19:24)
[2018-04-16] MEDS: Piperacill/Tazo 3.375gm in Dex 3.375 GM/50 ML BAG IVPB SCH ×3 (05:18→21:06)
[2018-04-16] MEDS: Promethazine 6.25 MG/5 ML CUP PO PRN (05:24)
[2018-04-16] MEDS: Fluticasone-Vilanterol 200/25mcg Diskus INH SCH (07:55)
[2018-04-16] MEDS: Tiotropium 18 mcg Cap For Inhalation INH SCH (07:55)
[2018-04-16] MEDS: MethylPREDNISolone 40 mg Vial IVP SCH ×2 (09:53→21:06)
[2018-04-16] MEDS: Metoprolol Succinate 25 mg XL Tab PO SCH (09:56)
[2018-04-16 15:45] LABS: ANCA SCREEN NEGATIVE (NEGATIVE)
--- NOTE | 2018-04-16 23:12 | CP.PCM.PN ---
Subjective - Date & Time of Evaluation Date of Evaluation: 04/16/18 Time of Evaluation: 23:12 - Subjective Subjective: Patient is morning much better. Still having right-sided pain upon taking deep breath. Cough minimally noted. But no mucus noted. On examination: Patient has a right-sided pleuritic rub. Regular [place] nontender abdomen no pedal edema I recommended to repeat the labs tomorrow. Repeat the chest x-ray. Currently on antibiotic. Reduce the steroid. Possible discharge plan after the chest x-ray Objective - Vital Signs/Intake and Output Vital Signs (last 24 hours): Temp Pulse Resp BP Pulse Ox 97.9 F 77 20 134/72 95 04/16/18 16:18 04/16/18 16:18 04/16/18 16:18 04/16/18 16:18 04/16/18 16:18 Intake and Output: 04/16/18 04/17/18 18:59 06:59 Intake Total 530 350 Output Total 600 Balance 530 -250 - Medications Medications: Current Medications Albuterol/Ipratropium (Duoneb 3 Mg/0.5 Mg (3 Ml) Ud) 3 ml INH Q6 [facility] Last Admin: 04/16/18 19:24 Dose: 3 ml Amlodipine Besylate (Norvasc) 10 mg PO DAILY [facility] Last Admin: 04/16/18 09:56 Dose: 10 mg Clopidogrel Bisulfate (Plavix) 75 mg PO DAILY [facility] Last Admin: 04/16/18 09:56 Dose: 75 mg Ezetimibe (Zetia) 10 mg PO DAILY [facility] Last Admin: 04/16/18 09:53 Dose: 10 mg Famotidine (Pepcid) 20 mg PO DAILY [facility] Last Admin: 04/16/18 09:56 Dose: 20 mg Fluticasone/Vilanterol (Breo Ellipta 200-25 Mcg Inh) 1 puff INH RQD [facility] Last Admin: 04/16/18 07:55 Dose: 1 puff Folic Acid (Folic Acid) 1 mg PO DAILY [facility] Last Admin: 04/16/18 09:56 Dose: 1 mg Heparin Sodium (Porcine) (Heparin) 5,000 units SC Q8 [facility] Last Admin: 04/16/18 21:06 Dose: 5,000 units Piperacillin Sod/Tazobactam Sod (Zosyn 3.375 Gm Iv Premix) 3.375 gm in 50 mls @ 100 mls/hr IVPB Q8 [facility]; Protocol Last Admin: 04/16/18 21:06 Dose: 100 mls/hr Methylprednisolone (Solu-Medrol) 40 mg IVP Q12 [facility] Last Admin: 04/16/18 21:06 Dose: 40 mg Metoprolol Succinate (Toprol Xl) 25 mg PO DAILY [facility] Last Admin: 04/16/18 09:56 Dose: 25 mg Promethazine HCl (Phenergan Syrup) 6.25 mg PO Q6 PRN PRN Reason: Cough and congestion Last Admin: 04/16/18 05:24 Dose: 6.25 mg Rosuvastatin Calcium (Crestor) 5 mg PO HS [facility] Last Admin: 04/16/18 21:06 Dose: 5 mg Tiotropium [place] (Spiriva) 18 mcg INH RQ24 [facility] Last Admin: 04/16/18 07:55 Dose: 18 mcg - Labs Labs: 04/11/18 11:04 04/11/18 11:04
[2018-04-17] MEDS: Albuterol-Ipratrop 3 mg / 0.5 (3 ml) UD INH SCH ×4 (01:40→20:37)
[2018-04-17] MEDS: Piperacill/Tazo 3.375gm in Dex 3.375 GM/50 ML BAG IVPB SCH ×3 (06:03→21:13)
[2018-04-17] MEDS: Promethazine 6.25 MG/5 ML CUP PO PRN (06:20)
[2018-04-17 07:19] LABS: BASO % 0.1 % (0.0-2.0); HEMOGLOBIN 8.7 g/dL (11.0-16.0); LYMPH # 0.2 K/uL (1.0-4.3); LYMPH % 1.8 % (20.0-40.0); MEAN CELL VOLUME 65.7 fL (81.0-99.0); MEAN CORPUSCULAR HEMOGLOBIN 19.9 pg (27.0-31.0); MEAN CORPUSCULAR HGB CONC 30.3 g/dL (33.0-37.0); MEAN PLATELET VOLUME 6.8 fL (7.2-11.7); MONO # 0.7 K/uL (0.0-0.8); MONO % 5.9 % (0.0-10.0); NEUT # 10.6 K/uL (1.8-7.0); NEUT % 92.2 % (50.0-75.0); NRBC % 0.8 % (0.0-2.0); PLATELET COUNT 366 K/uL (130-400); RBC 4.39 Mil/uL (3.80-5.20); RED CELL DISTRIBUTION WIDTH 17.9 % (11.5-14.5); WHITE BLOOD COUNT 11.5 K/uL (4.8-10.8)
[2018-04-17] MEDS: Tiotropium 18 mcg Cap For Inhalation INH SCH (07:45)
[2018-04-17] MEDS: Fluticasone-Vilanterol 200/25mcg Diskus INH SCH (07:45)
[2018-04-17 07:46] LABS: ALB/GLOB RATIO 1.3 (1.0-2.1); ALBUMIN 3.5 g/dL (3.5-5.0); ALT/SGPT 32 U/L (9-52); AST/SGOT 30 U/L (14-36); BLOOD UREA NITROGEN 18 mg/dL (7-17); GFR NON-AFRICAN AMERICAN > 60
--- NOTE | 2018-04-17 08:46 | RAD ---
Chest x-ray single frontal view HISTORY: Pneumonia. COMPARISON: 04/10/2018 Findings: Elevated right hemidiaphragm. Mild venous congestion. Mild cardiomegaly. Right hilar prominence. Degenerative changes in the spine and shoulders. Calcific tendinopathy of the left proximal humerus. Impression: Elevated right hemidiaphragm. Mild venous congestion. Mild cardiomegaly. Right hilar prominence. Degenerative changes in the spine and shoulders. Calcific tendinopathy of the left proximal humerus.
[2018-04-17 10:00] LABS: ANISOCYTOSIS SLIGHT; BANDS 3 % (0-2); HYPOCHROMIC MODERATE; LYMPHOCYTE 3 % (20-40); MICROCYTOSIS SLIGHT; MONOCYTE 6 % (0-10); NEUTROPHIL 88 % (50-75); OVALOCYTES SLIGHT; PLATELET ESTIMATE NORMAL (NORMAL); POIKILOCYTOSIS SLIGHT; TARGET CELLS SLIGHT; TEARDROP CELLS SLIGHT; TOTAL CELLS COUNTED 100
[2018-04-17] MEDS: Metoprolol Succinate 25 mg XL Tab PO SCH (10:42)
[2018-04-17] MEDS: MethylPREDNISolone 40 mg Vial IVP SCH (10:43)
[2018-04-18] MEDS: Piperacill/Tazo 3.375gm in Dex 3.375 GM/50 ML BAG IVPB SCH ×3 (05:35→21:03)
[2018-04-18] MEDS: Albuterol-Ipratrop 3 mg / 0.5 (3 ml) UD INH SCH ×3 (07:51→20:01)
[2018-04-18] MEDS: Promethazine 6.25 MG/5 ML CUP PO PRN (10:34)
[2018-04-18] MEDS: MethylPREDNISolone 40 mg Vial IVP SCH (10:34)
[2018-04-18] MEDS: Metoprolol Succinate 25 mg XL Tab PO SCH (10:34)
[2018-04-18] MEDS: Fluticasone-Vilanterol 200/25mcg Diskus INH SCH (10:51)
[2018-04-18] MEDS: Tiotropium 18 mcg Cap For Inhalation INH SCH (10:51)
--- NOTE | 2018-04-18 19:28 | CP.PCM.PN ---
Subjective - Date & Time of Evaluation Date of Evaluation: 04/18/18 Time of Evaluation: 19:28 - Subjective Subjective: Patient is doing well. No chest pain or shortness of breath noted. But is still on examination there is a rales noted in the right lower lung region. I discussed with the interventional radiology about the lung biopsy. After reviewing the CAT scan there is air bronchogram, most likely an inflammatory and infectious process. He recommended to continue the conservative treatment and repeat the CAT scan in 2 months, and biopsy if needed after that. Objective - Vital Signs/Intake and Output Vital Signs (last 24 hours): Temp Pulse Resp BP Pulse Ox 98.4 F 81 20 131/70 98 04/18/18 16:00 04/18/18 16:00 04/18/18 16:00 04/18/18 16:00 04/18/18 16:00 Intake and Output: 04/18/18 04/19/18 18:59 06:59 Intake Total 410 Balance 410 - Medications Medications: Current Medications Albuterol/Ipratropium (Duoneb 3 Mg/0.5 Mg (3 Ml) Ud) 3 ml INH Q6 [facility] Last Admin: 04/18/18 13:46 Dose: 3 ml Amlodipine Besylate (Norvasc) 10 mg PO DAILY [facility] Last Admin: 04/18/18 10:34 Dose: 10 mg Clopidogrel Bisulfate (Plavix) 75 mg PO DAILY [facility] Last Admin: 04/18/18 10:34 Dose: 75 mg Ezetimibe (Zetia) 10 mg PO DAILY [facility] Last Admin: 04/18/18 10:34 Dose: 10 mg Famotidine (Pepcid) 20 mg PO DAILY [facility] Last Admin: 04/18/18 10:34 Dose: 20 mg Fluticasone/Vilanterol (Breo Ellipta 200-25 Mcg Inh) 1 puff INH RQD [facility] Last Admin: 04/18/18 10:51 Dose: 1 puff Folic Acid (Folic Acid) 1 mg PO DAILY [facility] Last Admin: 04/18/18 10:34 Dose: 1 mg Heparin Sodium (Porcine) (Heparin) 5,000 units SC Q8 [facility] Last Admin: 04/18/18 13:45 Dose: 5,000 units Piperacillin Sod/Tazobactam Sod (Zosyn 3.375 Gm Iv Premix) 3.375 gm in 50 mls @ 100 mls/hr IVPB Q8 [facility]; Protocol Last Admin: 04/18/18 13:45 Dose: 100 mls/hr Methylprednisolone (Solu-Medrol) 40 mg IVP DAILY [facility] Last Admin: 04/18/18 10:34 Dose: 40 mg Metoprolol Succinate (Toprol Xl) 25 mg PO DAILY [facility] Last Admin: 04/18/18 10:34 Dose: 25 mg Promethazine HCl (Phenergan Syrup) 6.25 mg PO Q6 PRN PRN Reason: Cough and congestion Last Admin: 04/18/18 10:34 Dose: 6.25 mg Rosuvastatin Calcium (Crestor) 5 mg PO HS [facility] Last Admin: 04/17/18 21:13 Dose: 5 mg Tiotropium [place] (Spiriva) 18 mcg INH RQ24 [facility] Last Admin: 04/18/18 10:51 Dose: 18 mcg - Labs Labs: 04/17/18 06:58 04/17/18 06:58
--- NOTE | 2018-04-18 19:30 | CP.PCM.PN ---
Subjective - Date & Time of Evaluation Date of Evaluation: 04/18/18 Time of Evaluation: 19:29 - Subjective Subjective: Patient today is feeling well. No chest pain noted. Denies any shortness of breath. But complaining of dryness in the back of the throat noted. Vital signs are stable. Chest good air entry regular [place] nontender abdomen Repeat chest x-ray showed yesterday nonspecific. No infiltrative changes. I explained to the patient regarding the biopsy. I spoke to her about conservative treatment for the next 2 weeks, and repeat the CAT scan as an outpatient and after that we will plan for this transthoracic biopsy. If needed bronchoscopy as an outpatient. We will plan for discharge tomorrow Objective - Vital Signs/Intake and Output Vital Signs (last 24 hours): Temp Pulse Resp BP Pulse Ox 98.4 F 81 20 131/70 98 04/18/18 16:00 04/18/18 16:00 04/18/18 16:00 04/18/18 16:00 04/18/18 16:00 Intake and Output: 04/18/18 04/19/18 18:59 06:59 Intake Total 410 Balance 410 - Medications Medications: Current Medications Albuterol/Ipratropium (Duoneb 3 Mg/0.5 Mg (3 Ml) Ud) 3 ml INH Q6 [facility] Last Admin: 04/18/18 13:46 Dose: 3 ml Amlodipine Besylate (Norvasc) 10 mg PO DAILY [facility] Last Admin: 04/18/18 10:34 Dose: 10 mg Clopidogrel Bisulfate (Plavix) 75 mg PO DAILY [facility] Last Admin: 04/18/18 10:34 Dose: 75 mg Ezetimibe (Zetia) 10 mg PO DAILY [facility] Last Admin: 04/18/18 10:34 Dose: 10 mg Famotidine (Pepcid) 20 mg PO DAILY [facility] Last Admin: 04/18/18 10:34 Dose: 20 mg Fluticasone/Vilanterol (Breo Ellipta 200-25 Mcg Inh) 1 puff INH RQD [facility] Last Admin: 04/18/18 10:51 Dose: 1 puff Folic Acid (Folic Acid) 1 mg PO DAILY [facility] Last Admin: 04/18/18 10:34 Dose: 1 mg Heparin Sodium (Porcine) (Heparin) 5,000 units SC Q8 [facility] Last Admin: 02/21/19 13:45 Dose: 5,000 units Piperacillin Sod/Tazobactam Sod (Zosyn 3.375 Gm Iv Premix) 3.375 gm in 50 mls @ 100 mls/hr IVPB Q8 [facility]; Protocol Last Admin: 04/18/18 13:45 Dose: 100 mls/hr Methylprednisolone (Solu-Medrol) 40 mg IVP DAILY [facility] Last Admin: 04/18/18 10:34 Dose: 40 mg Metoprolol Succinate (Toprol Xl) 25 mg PO DAILY [facility] Last Admin: 04/18/18 10:34 Dose: 25 mg Promethazine HCl (Phenergan Syrup) 6.25 mg PO Q6 PRN PRN Reason: Cough and congestion Last Admin: 04/18/18 10:34 Dose: 6.25 mg Rosuvastatin Calcium (Crestor) 5 mg PO HS [facility] Last Admin: 04/17/18 21:13 Dose: 5 mg Tiotropium [place] (Spiriva) 18 mcg INH RQ24 [facility] Last Admin: 04/18/18 10:51 Dose: 18 mcg - Labs Labs: 04/17/18 06:58 04/17/18 06:58
[2018-04-19] MEDS: Albuterol-Ipratrop 3 mg / 0.5 (3 ml) UD INH SCH ×3 (02:58→13:45)
[2018-04-19] MEDS: Piperacill/Tazo 3.375gm in Dex 3.375 GM/50 ML BAG IVPB SCH ×2 (05:18→13:38)
[2018-04-19] MEDS: Fluticasone-Vilanterol 200/25mcg Diskus INH SCH (07:30)
[2018-04-19] MEDS: Tiotropium 18 mcg Cap For Inhalation INH SCH (07:30)
[2018-04-19] MEDS: Metoprolol Succinate 25 mg XL Tab PO SCH (09:37)
[2018-04-19] MEDS: MethylPREDNISolone 40 mg Vial IVP SCH (09:38)
[2018-04-19 16:37] VITALS: BP 133/66; PULSE 83; TEMP 98; O2SAT 97
--- NOTE | 2018-04-19 18:06 | CP.PCM.DIS ---
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0-99.0) L 04/17/18 06:58 MCH 19.9 pg (27.0-31.0) L 04/17/18 06:58 MCHC 30.3 g/dL (33.0-37.0) L 04/17/18 06:58 RDW 17.9 % (11.5-14.5) H 04/17/18 06:58 Plt Count 366 K/uL (130-400) 04/17/18 06:58 MPV 6.8 fL (7.2-11.7) L 04/17/18 06:58 Neut % (Auto) 92.2 % (50.0-75.0) H 04/17/18 06:58 Lymph % (Auto) 1.8 % (20.0-40.0) L 04/17/18 06:58 [place] % (Auto) 5.9 % (0.0-10.0) 04/17/18 06:58 Eos % (Auto) 0.0 % (0.0-4.0) 04/17/18 06:58 Baso % (Auto) 0.1 % (0.0-2.0) 04/17/18 06:58 Neut # (Auto) 10.6 K/uL (1.8-7.0) H 04/17/18 06:58 Lymph # (Auto) 0.2 K/uL (1.0-4.3) L 04/17/18 06:58 [place] # (Auto) 0.7 K/uL (0.0-0.8) 04/17/18 06:58 Eos # (Auto) 0.0 K/uL (0.0-0.7) 04/17/18 06:58 Baso # (Auto) 0.0 K/uL (0.0-0.2) 04/17/18 06:58 Neutrophils % (Manual) 88 % (50-75) H 04/17/18 06:58 Band Neutrophils % 3 % (0-2) H 04/17/18 06:58 Lymphocytes % (Manual) 3 % (20-40) L 04/17/18 06:58 Monocytes % (Manual) 6 % (0-10) 04/17/18 06:58 Differential Comment 04/10/18 12:42 Platelet Estimate Normal (NORMAL) 04/17/18 06:58 Hypochromasia (manual) Moderate 04/17/18 06:58 Poikilocytosis (manual Slight 04/17/18 06:58 Basophilic Stippling Slight 04/17/18 06:58 Anisocytosis (manual) Slight 04/17/18 06:58 Microcytosis (manual) Slight 04/17/18 06:58 Target Cells Slight 04/17/18 06:58 Tear Drop Cells Slight 04/17/18 06:58 Ovalocytes Slight 04/17/18 06:58 Acanthocytes (Spur) Slight 04/11/18 11:04 ESR 60 mm/hr (0-20) H 04/11/18 11:04 Sodium 134 mmol/L (132-148) 04/17/18 06:58 Potassium 4.5 mmol/L (3.6-5.2) 04/17/18 06:58 Chloride 100 mmol/L (98-107) 04/17/18 06:58 Carbon Dioxide 27 mmol/L (22-30) 04/17/18 06:58 Anion Gap 12 (10-20) 04/17/18 06:58 BUN 18 mg/dL (7-17) H 04/17/18 06:58 Creatinine 0.7 mg/dL (0.7-1.2) 04/17/18 06:58 Est GFR ( Amer) > 60 04/17/18 06:58 Est GFR (Non-Af Amer) > 60 04/17/18 06:58 Random Glucose 197 mg/dL (65-105) H D 04/17/18 06:58 Calcium 9.0 mg/dl (8.6-10.4) 04/17/18 06:58 Phosphorus 4.1 mg/dL (2.5-4.5) 04/17/18 06:58 Magnesium 2.1 mg/dL (1.6-2.3) 04/17/18 06:58 Total Bilirubin 0.5 mg/dL (0.2-1.3) 04/17/18 06:58 AST 30 U/L (14-36) 04/17/18 06:58 ALT 32 U/L (9-52) 04/17/18 06:58 Alkaline Phosphatase 71 U/L (38-126) 04/17/18 06:58 C-Reactive Protein 25.60 mg/L (0.0-9.9) H 04/11/18 11:04 Total Protein 6.2 g/dL (6.3-8.3) L 04/17/18 06:58 Albumin 3.5 g/dL (3.5-5.0) 04/17/18 06:58 Globulin 2.7 gm/dL (2.2-3.9) 04/17/18 06:58 Albumin/Globulin Ratio 1.3 (1.0-2.1) 04/17/18 06:58 Procalcitonin < 0.05 NG/ML (0.19-0.49) L 04/11/18 11:04 A.fumigatus Allerg IgE <0.10 kU/L (<0.10) 04/11/18 11:04 A. fumigatus ASM Class 0 04/11/18 11:04 Urine Color Yellow (YELLOW) 04/10/18 13:06 Urine Clarity Clear (Clear) 04/10/18 13:06 Urine pH 7.0 (5.0-8.0) 04/10/18 13:06 Ur Specific [place] 1.015 (1.003-1.030) 04/10/18 13:06 Urine Protein Negative mg/dL (NEGATIVE) 04/10/18 13:06 Urine Glucose (UA) Normal mg/dL (Normal) 04/10/18 13:06 Urine Ketones Negative mg/dL (NEGATIVE) 04/10/18 13:06 Urine Blood Negative (NEGATIVE) 04/10/18 13:06 Urine Nitrate Negative (NEGATIVE) 04/10/18 13:06 Urine Bilirubin Negative (NEGATIVE) 04/10/18 13:06 Urine Urobilinogen Normal mg/dL (0.2-1.0) 04/10/18 13:06 Ur Leukocyte Esterase Trace Dotty/uL (Negative) 04/10/18 13:06 Urine WBC (Auto) 1 /hpf (0-5) 04/10/18 13:06 Urine RBC (Auto) < 1 /hpf (0-3) 04/10/18 13:06 Ur Squamous Epith Cells 4 /hpf (0-5) 04/10/18 13:06 Urine Bacteria Rare (<OCC) 04/10/18 13:06 IgE 133 kU/L (<ft=804) H 04/11/18 11:04 VICKI Screen Negative (Negative) 04/11/18 11:04 ANCA Screen Negative (NEGATIVE) 04/11/18 11:04 c-ANCA Titer TNP 04/11/18 11:04 Proteinase 3 (PR3) <1.0 AI (<1.0) 04/11/18 11:04 p-ANCA Titer TNP 04/11/18 11:04 Atypical p-ANCA Titer TNP 04/11/18 11:04 Myeloperoxidase Ab <1.0 AI (<1.0) 04/11/18 11:04 Influenza Typ A,B (EIA) Negative for flu a/b (NEGATIVE) 04/10/18 13:06 Discharge Plan - Discharge Medications Prescriptions: Amoxicillin/Potassium Clav [Amox-Clav 875-125 mg Tablet] 1 each PO BID #20 tablet predniSONE [predniSONE Tab] 20 mg PO DAILY #30 tab - Follow Up Plan Condition: STABLE Disposition: HOME/ ROUTINE
== END 2018-04-19 18:42 | disposition home or self-care (01) | DRG 194 ==
LOC: C.ER 11:39 → C.3T 14:28
PROVIDERS: ADMIT Internal Medicine; ATTEND Internal Medicine
DX: J18.9 Pneumonia, unspecified organism (principal); J44.0 Chronic obstructive pulmonary disease with (acute) lower respiratory infection; I25.10 Atherosclerotic heart disease of native coronary artery without angina pectoris; I10 Essential (primary) hypertension; E11.9 Type 2 diabetes mellitus without complications; D56.9 Thalassemia, unspecified; Z95.5 Presence of coronary angioplasty implant and graft; M06.9 Rheumatoid arthritis, unspecified; J84.89 Other specified interstitial pulmonary diseases; E78.00 Pure hypercholesterolemia, unspecified

== ENCOUNTER 2018-05-06 13:03 | Outpatient (CLI) | payer MEDICARE, OTHER | END 2018-05-06 13:04 | disposition home or self-care (01) | LOC: C.CTH 13:03 ==

== ENCOUNTER 2018-05-12 15:53 | Inpatient (IN) | payer MEDICARE, OTHER ==
[2018-05-12 15:55] VITALS: BMI 26.2
[2018-05-12] MEDS ORDERED: MethylPREDNISolone 40 mg Vial IVP STA (16:16)
[2018-05-12] MEDS ORDERED: Albuterol-Ipratrop 3 mg / 0.5 (3 ml) UD INH STA ×2 (16:16)
--- NOTE | 2018-05-12 16:40 | C.PDOC ---
History Of Present Illness 73 year old female with a history of HTN, COPD, and HLD presents to the emergency department for evaluation of cough, shortness of breath for the last few days. Patient states that she is taking Zithromax with no improvement of symptoms. Patient had a recent chest CT done on Sunday05-10-18 when she saw her PMD, who sent her here for further evaluation. Patient states that her symptoms are worsening, but denies fever and pain. Time Seen by Provider: 05/12/18 16:06 Chief Complaint (Nursing): Shortness Of Breath History Per: Patient History/Exam Limitations: no limitations Onset/Duration Of Symptoms: Days Current Symptoms Are (Timing): Still Present Initiating Event: Upper Respiratory Illness Quality: denies: "Pain" Current Respiratory Medications: Other (Zithromax) Associated Symptoms: Other (cough, shortness of breath). denies: Fever, Chills, Chest Pain Past Medical History Reviewed: Historical Data, Nursing Documentation, Vital Signs Vital Signs: Last Vital Signs Temp 99.1 F 05/12/18 16:00 Pulse 94 H 05/12/18 16:00 Resp 20 05/12/18 16:00 BP 128/80 05/12/18 16:00 Pulse Ox 95 05/12/18 16:00 - Medical History PMH: Anemia, Anxiety, Arthritis, Asthma, COPD, Gastritis, HTN, Hypercholesterolemia, Rheumatoid Arthritis Denies: Chronic Kidney Disease Surgical History: Coronary Stent, Endoscopy - [facility] Procedures CARDIAC STRESS TEST NEC (07/06/14) RT & LT HEART ANGIOCARD (10/09/12) RT/LEFT HEART CARD CATH (10/09/12) Family History: States: No Known Family Hx - Social History Hx Tobacco Use: No Hx Alcohol Use: No Hx Substance Use: No - Immunization History Hx Tetanus Toxoid Vaccination: No Hx Influenza Vaccination: Yes Hx Pneumococcal Vaccination: No Review Of Systems Except As Marked, All Systems Reviewed And Found Negative. Constitutional: Negative for: Fever, Chills Cardiovascular: Negative for: Chest Pain Respiratory: Positive for: Cough, Shortness of Breath Gastrointestinal: Negative for: Nausea, Vomiting, Abdominal Pain, Diarrhea Physical Exam - Physical Exam Appears: Non-toxic, No Acute Distress Skin: Normal Color, Warm, Dry Head: Atraumatic, Normacephalic Eye(s): bilateral: Normal Inspection, PERRL, EOMI Nose: Normal Oral Mucosa: Moist Throat: Normal, No Erythema, No Exudate Neck: Normal, Supple Chest: Symmetrical, No Tenderness Cardiovascular: Rhythm Regular, No Murmur Respiratory: Decreased Breath Sounds (coarse breath sounds b/l), No Rales, No Rhonchi, No Wheezing Gastrointestinal/Abdominal: Soft, No Tenderness, No Guarding, No Rebound Extremity: Normal ROM Neurological/Psych: Oriented x3, Normal Speech, Normal Cognition ED Course And Treatment - Laboratory Results Result Diagrams: 05/12/18 17:09 05/12/18 17:09 ECG: Interpreted By Me, Viewed By Me ECG Rhythm: Sinus Tachycardia Rate From EC O2 Sat by Pulse Oximetry: 95 (RA) Pulse Ox Interpretation: Normal Medical Decision Making Medical Decision Making: Plan: EKG Chemistry Hematology CXR Albuterol 3ml INH Solu-Medrol 125mg IVP Blood Culture Influenza Serology Urinalysis failure of outpt tx. sp anbitoics recent ct with suggestive infectious process. accepted pmd. Disposition - Disposition Disposition: HOSPITALIZED Disposition Time: 07:00 Condition: GOOD - Clinical Impression Clinical Impression: Respiratory tract infection, Pneumonia - Scribe Statement The provider has reviewed the documentation as recorded by the Scribe (Bakari Juárez) Provider Attestation: All medical record entries made by the Scribe were at my direction and personally dictated by me. I have reviewed the chart and agree that the record accurately reflects my personal performance of the history, physical exam, medical decision making, and the department course for this patient. I have also personally directed, reviewed, and agree with the discharge instructions and disposition. Decision To Admit - Pt Status Changed To: Hospital Disposition Of: Inpatient - Admit Certification Admit to Inpatient:: After my assessment, the patient will require hospitalization for at least two midnights. This is because of the severity of symptoms shown, intensity of services needed, and/or the medical risk in this patient being treated as an outpatient. - InPatient: Physician Admission Certification: I certify that this patient requires 2 or more midnights of care for the following reason:: failure of outpt - . Bed Request Type: Regular Admitting Physician: Jolene Mueller Patient Diagnosis: Respiratory tract infection, Pneumonia
[2018-05-12] MEDS ORDERED: Albuterol-Ipratrop 3 mg / 0.5 (3 ml) UD ONE (16:41)
[2018-05-12 17:13] LABS: BASO % 0.4 % (0.0-2.0); EOS # 0.2 K/uL (0.0-0.7); EOS % 2.4 % (0.0-4.0); HEMOGLOBIN 8.7 g/dL (11.0-16.0); LYMPH # 1.2 K/uL (1.0-4.3); LYMPH % 14.6 % (20.0-40.0); MEAN CELL VOLUME 64.5 fL (81.0-99.0); MEAN CORPUSCULAR HEMOGLOBIN 19.4 pg (27.0-31.0); MEAN CORPUSCULAR HGB CONC 30.1 g/dL (33.0-37.0); MONO # 0.7 K/uL (0.0-0.8); MONO % 8.6 % (0.0-10.0); NEUT # 6.3 K/uL (1.8-7.0); NRBC % 0.2 % (0.0-2.0); RBC 4.5 Mil/uL (3.80-5.20); RED CELL DISTRIBUTION WIDTH 17.9 % (11.5-14.5); WHITE BLOOD COUNT 8.6 K/uL (4.8-10.8)
[2018-05-12 17:26] LABS: INR 1.1; PROTHROMBIN TIME 11.7 SECONDS (9.7-12.2)
[2018-05-12 17:29] LABS: ALB/GLOB RATIO 1.2 (1.0-2.1); ALBUMIN 3.8 g/dL (3.5-5.0); ALT/SGPT 21 U/L (9-52); AST/SGOT 29 U/L (14-36); BLOOD UREA NITROGEN 8 mg/dL (7-17); CALCIUM 9.1 mg/dl (8.6-10.4); GFR NON-AFRICAN AMERICAN > 60
--- NOTE | 2018-05-12 17:33 | RAD ---
Chest x-ray single frontal view HISTORY: Chest pain. COMPARISON: 04/17/2018 Findings: Mild venous congestion. Patchy increased markings at the lung bases and left suprahilar region. Right hilar prominence. Top normal heart size. Degenerative changes in the spine and shoulders. Calcific tendinopathy left proximal humerus. Impression: Mild venous congestion. Patchy increased markings at the lung bases and left suprahilar region. Right hilar prominence. Top normal heart size. Degenerative changes in the spine and shoulders. Calcific tendinopathy left proximal humerus.
[2018-05-12 17:37] LABS: B-TYPE NATRIURETIC PEPTIDE 155 pg/mL (0-900)
[2018-05-12 17:52] LABS: SQUAMOUS EPITHIAL < 1 /hpf (0-5); URINE BILIRUBIN NEGATIVE (NEGATIVE); URINE BLOOD NEGATIVE (NEGATIVE); URINE CLARITY Clear (Clear); URINE COLOR Yellow (YELLOW); URINE GLUCOSE (UA) NORMAL (Normal); URINE LEUKOCYTE ESTERASE NEG Leu/uL (Negative); URINE PROTEIN NEGATIVE (NEGATIVE); URINE UROBILINOGEN NORMAL mg/dL (0.2-1.0)
[2018-05-12] MEDS ORDERED: cefTRIAXone IV 1 gm in Dextros 50 ML IVPB ONE (20:18)
[2018-05-12] MEDS: Azithromycin 500 MG in Sodium Chloride 0.9% 250 ML IVPB SCH (21:45)
[2018-05-12] MEDS: (Novolin R) Insulin Human Regular 100 units/ml vial SC SCH (22:50)
[2018-05-13] MEDS: Albuterol-Ipratrop 3 mg / 0.5 (3 ml) UD INH SCH ×4 (01:39→20:08)
[2018-05-13] MEDS: (Novolin R) Insulin Human Regular 100 units/ml vial SC SCH ×4 (07:33→22:00)
--- NOTE | 2018-05-13 09:07 | CP.PCM.HP ---
History of Present Illness - History of Present Illness History of Present Illness: Chief complaint: Increasing cough, hypoxia and respiratory distress HPI: 73-year-old female with a history of hypertension, CAD, cardiac stent, hypercholesterolemia, asthma, multiple allergies and osteoarthritis, rheumatoid arthritis came to the emergency room, following the patient was seen in my office. The patient 3 months ago admitted to the hospital with the pneumonia. At that time with antibiotic and intravenous corticosteroid pneumonia got better. There is near complete resolution of the pneumonia in the recent CAT scan noted. But the recent evaluation was started showing increasing symptoms of recurrence Recently patient was hospitalized, and outpatient CAT scan of the chest was done, showing evidence of worsening alveolar changes diffusely, but there is a significant improvement in the right lower lung pneumonia process. But patient was having increasing cough increasing chest tightness and wheezing and also there was significant drop in oxygen saturation, I advised her to go to the hospital. Patient in the emergency room was evaluated given steroid, this morning she is feeling much better. Lungs are less wheezing. She is also feeling slightly better able to walk. Yesterday she was not able to walk. Her functional capacity is extremely reduced less than 1 block 3 days ago, but it today she is able to walk few steps. Low-grade fever noted. Poor appetite noted at times. Sweating at times noted. Denies any nausea no vomiting no abdominal pain. Patient is being treated for rheumatoid arthritis with methotrexate. Patient received also outpatient p.o. antibiotic and steroid, with no improvement. Past medical history: Hypertension, CAD, stent, hypercholesterolemia, asthma, multiple allergies, osteoarthritis, rheumatoid arthritis. Surgical history: Patient has a stent in the RCA. Patient had multiple endoscopy and a colonoscopy. Patient has multiple allergies including iodine, seasonal allergy, pollens, phenylenediamine, sulfa, cat danders. Personal history: Non-smoker nonalcoholic functional capacity is normal Family history noncontributory Review of system: Patient is having headache, cough, wheezing, chest tightness, shortness of breath, fever, chills, Patient has a multiple allergies in the past. Chest pain with the cough noted On examination: Patient noted to have a hypoxia at room air. Supplemental oxygen improves the oxygenation. Vital signs are stable otherwise. Heart sounds are regular Chest a minimal expiratory bilateral wheezing noted irregular heart sound. Abdomen nontender. Pedal edema negative Labs reviewed X-ray showing increasing alveolar changes noted, worsening congestive changes noted Assessment and recommendation: 72-year-old female with multiple medical history including CAD's hypertension hypercholesterolemia status post a stent. Patient has rheumatoid arthritis, currently patient is also taking immunosuppressive treatment for rheumatoid arthritis in the form of methotrexate. Now admitted with a possible acute pneumonitis, pneumonia. Patient possibly has a worsening alveolar process Diffuse alveolitis, underlying bronchoalveolar pneumonia cannot be ruled out Underlying non-resolving pneumonia likely, and also BOOP possible. We will start the patient on empirical antibiotic. Solu-Medrol. Oxygen supplementation. DVT GI prophylaxis. We will closely monitor. We will plan for bronchoscopic evaluation. Patient might need a transthoracic needle biopsy also. We will continue the DVT and GI prophylaxis antibiotic bronchodilators Present on Admission - Present on Admission Any Indicators Present on Admission: No History of DVT/PE: No History of Uncontrolled Diabetes: No Urinary Catheter: No Decubitus Ulcer Present: No Past Patient History - Infectious Disease Hx of Infectious Diseases: None - Past Medical History & Family History Past Medical History?: Yes - Past Social History Smoking Status: Never Smoked - CARDIAC Hx Cardiac Disorders: Yes Hx Hypercholesterolemia: Yes Hx Hypertension: Yes - PULMONARY Hx Respiratory Disorders: Yes Hx Asthma: Yes Hx Chronic Obstructive Pulmonary Disease (COPD): Yes Hx Pneumonia: Yes - NEUROLOGICAL Hx Neurological Disorder: Yes - HEENT Hx HEENT Problems: Yes Hx Cataracts: Yes - RENAL Hx Chronic Kidney Disease: No - ENDOCRINE/METABOLIC Hx Endocrine Disorders: No - HEMATOLOGICAL/ONCOLOGICAL Hx Blood Disorders: Yes Hx Anemia: Yes Other/Comment: thalassemia - INTEGUMENTARY Hx Dermatological Problems: No - MUSCULOSKELETAL/RHEUMATOLOGICAL Hx Musculoskeletal Disorders: Yes Hx Arthritis: Yes Hx Falls: No Hx Rheumatoid Arthritis: Yes - GASTROINTESTINAL Hx Gastrointestinal Disorders: Yes Hx Gastritis: Yes - GENITOURINARY/GYNECOLOGICAL Hx Genitourinary Disorders: No - PSYCHIATRIC Hx Psychophysiologic Disorder: Yes Hx Anxiety: Yes Hx Substance Use: No - SURGICAL HISTORY Hx Surgeries: Yes Hx Coronary Stent: Yes (2008) - ANESTHESIA Hx Anesthesia: Yes Hx Anesthesia Reactions: No Hx Malignant Hyperthermia: No Meds Allergies/Adverse Reactions: Allergies Allergy/AdvReac Type Severity Reaction Status Date / Time Iodinated Contrast- Oral and Allergy Intermediate RASH Verified 05/12/18 15:59 IV Dye [Iodinated Contrast Media - IV Dye] nut - unspecified Allergy SWELLING Verified 05/12/18 15:59 cleaning products Allergy SWELLING Uncoded 05/12/18 15:59 Results - Vital Signs Recent Vital Signs: Last Vital Signs Temp 97.9 F 05/13/18 07:00 Pulse 85 05/13/18 07:00 Resp 18 05/13/18 07:00 BP 151/79 H 05/13/18 07:00 Pulse Ox 96 05/13/18 07:00 - Labs Result Diagrams: 05/12/18 17:09 05/12/18 17:09 Labs: Laboratory Results - last 24 hr 05/12/18 05/12/18 05/12/18 17:09 17:09 17:09 WBC 8.6 RBC 4.50 Hgb 8.7 L Hct 29.0 L MCV 64.5 L MCH 19.4 L MCHC 30.1 L RDW 17.9 H Plt Count 535 H D MPV 7.0 L Neut % (Auto) 74.0 Lymph % (Auto) 14.6 L [place] % (Auto) 8.6 Eos % (Auto) 2.4 Baso % (Auto) 0.4 Neut # (Auto) 6.3 Lymph # (Auto) 1.2 [place] # (Auto) 0.7 Eos # (Auto) 0.2 Baso # (Auto) 0.0 PT 11.7 INR 1.1 APTT 32 Sodium 135 Potassium 3.6 Chloride 101 Carbon Dioxide 28 Anion Gap 10 BUN 8 Creatinine 0.9 Est GFR ( Amer) > 60 Est GFR (Non-Af Amer) > 60 POC Glucose (mg/dL) Random Glucose 98 D Calcium 9.1 Total Bilirubin 0.4 AST 29 ALT 21 Alkaline Phosphatase 90 Troponin I < 0.0120 NT-Pro-B Natriuret Pep 155 Total Protein 7.0 Albumin 3.8 Globulin 3.3 Albumin/Globulin Ratio 1.2 Urine Color Urine Clarity Urine pH Ur Specific [place] Urine Protein Urine Glucose (UA) Urine Ketones Urine Blood Urine Nitrate Urine Bilirubin Urine Urobilinogen Ur Leukocyte Esterase Urine WBC (Auto) Ur Squamous Epith Cells Hyaline Casts Influenza Typ A,B (EIA) 05/12/18 05/12/18 05/12/18 17:09 17:43 21:35 WBC RBC Hgb Hct MCV MCH MCHC RDW Plt Count MPV Neut % (Auto) Lymph % (Auto) [place] % (Auto) Eos % (Auto) Baso % (Auto) Neut # (Auto) Lymph # (Auto) [place] # (Auto) Eos # (Auto) Baso # (Auto) PT INR APTT Sodium Potassium Chloride Carbon Dioxide Anion Gap BUN Creatinine Est GFR ( Amer) Est GFR (Non-Af Amer) POC Glucose (mg/dL) 444 H* Random Glucose Calcium Total Bilirubin AST ALT Alkaline Phosphatase Troponin I NT-Pro-B Natriuret Pep Total Protein Albumin Globulin Albumin/Globulin Ratio Urine Color Yellow Urine Clarity Clear Urine pH 7.0 Ur Specific [place] 1.008 Urine Protein Negative Urine Glucose (UA) Normal Urine Ketones Negative Urine Blood Negative Urine Nitrate Negative Urine Bilirubin Negative Urine Urobilinogen Normal Ur Leukocyte Esterase Neg Urine WBC (Auto) < 1 Ur Squamous Epith Cells < 1 Hyaline Casts 3-5 H Influenza Typ A,B (EIA) Negative for flu a/b
[2018-05-13] MEDS: cefTRIAXone IV 1 gm in Dextros 50 ML IVPB SCH (10:11)
[2018-05-13] MEDS: MethylPREDNISolone 40 mg Vial IVP SCH ×2 (10:12→18:00)
[2018-05-13] MEDS: Metoprolol Succinate 25 mg XL Tab PO SCH (10:25)
[2018-05-13] MEDS ORDERED: Lidocaine 4% (Laryng-O-Jet) Kit MM ONE (17:29)
[2018-05-13] MEDS ORDERED: Lidocaine 2% MPF (5 ml) Inj ONE (17:29)
[2018-05-13] MEDS ORDERED: EPINEPHrine 1 mg/ml (1:1000) Inj ONE (17:29)
[2018-05-13] MEDS ORDERED: Midazolam 2 MG/2 ML VIAL ONE (17:51)
[2018-05-13] MEDS ORDERED: Propofol 10 mg/ml Inj (20 ML) ONE (17:51)
[2018-05-13] MEDS ORDERED: Lidocaine Hydrochloride 5 ML INJ ONE (17:59)
[2018-05-13] MEDS ORDERED: Albuterol-Ipratrop 3 mg / 0.5 (3 ml) UD INH STA (18:26)
--- NOTE | 2018-05-13 18:26 | PCM.SURG1 ---
Surgeon's Initial Post Op Note - Surgeon's Notes Surgeon: Ami Steel Turner: none Type of Anesthesia: General IV Pre-Operative Diagnosis: chronic non resolving pna Operative Findings: erythematous tracheal and bronchial mucosa noted. easy to bleed noted Post-Operative Diagnosis: trancheo bronchitis and possible sarcoidosis with cobble stone mucosa Operation Performed: diagnostic bronch and BAL, Brushing and Washing Specimen/Specimens Removed: Bal, Brushing, and washing Estimated Blood Loss: EBL {In ML}: 0 Post-Op Condition: Good Date of Surgery/Procedure: 05/13/18 Time of Surgery/Procedure: :
[2018-05-13] MEDS: Azithromycin 500 MG in Sodium Chloride 0.9% 250 ML IVPB SCH (20:00)
[2018-05-14] MEDS: Albuterol-Ipratrop 3 mg / 0.5 (3 ml) UD INH SCH ×4 (01:45→19:51)
[2018-05-14] MEDS: (Novolin R) Insulin Human Regular 100 units/ml vial SC SCH ×4 (07:45→22:00)
--- NOTE | 2018-05-14 09:36 | CP.PCM.PN ---
Subjective - Date & Time of Evaluation Date of Evaluation: 05/14/18 Time of Evaluation: 09:33 - Subjective Subjective: Patient is still having some cough at this time, she has no chest pain, able to walk slightly better than before, even without of oxygen is able to walk slightly better than before. Mucus production is less. No fever today, patient had a bronchoscopic evaluation done yesterday awaiting for cultures at this time. Patient is currently receiving Solu-Medrol, bronchodilators, and intravenous antibiotic On examination: Vital signs are stable. Chest good air entry, expiratory wheezing in the lower lung velásquez especially on the right side noted, post expiratory capacity slightly on the low side Heart sounds are regular Nontender abdomen No pedal edema Patient is a 73-year-old female with a history of rheumatoid arthritis, CAD, cardiac stenting, history of allergies in the past now on methotrexate treatment. Patient admitted with a non-resolving pneumonia in spite of the outpatient treatment and recent hospitalization no improvement in the pneumonia noted. Awaiting for the bronchial washing culture as well as brushing. I recommended transthoracic needle biopsy for the ultimate diagnosis. Will wait for interventional radiology consultation and will follow the patient Objective - Vital Signs/Intake and Output Vital Signs (last 24 hours): Temp Pulse Resp BP Pulse Ox 97.7 F 86 18 127/74 99 05/14/18 07:00 05/14/18 07:00 05/14/18 07:00 05/14/18 07:00 05/14/18 07:00 - Medications Medications: Current Medications Albuterol/Ipratropium (Duoneb 3 Mg/0.5 Mg (3 Ml) Ud) 3 ml INH RQ6 DANIELLE Last Admin: 05/14/18 09:00 Dose: 3 ml Amlodipine Besylate (Norvasc) 5 mg PO DAILY DANIELLE Last Admin: 05/13/18 10:25 Dose: 5 mg Clopidogrel Bisulfate (Plavix) 75 mg PO DAILY DANIELLE Last Admin: 05/13/18 10:25 Dose: 75 mg Ezetimibe (Zetia) 10 mg PO HS DANIELLE Last Admin: 05/13/18 23:36 Dose: 10 mg Famotidine (Pepcid) 20 mg PO DAILY DANIELLE Last Admin: 05/13/18 10:24 Dose: 20 mg Folic Acid (Folic Acid) 1 mg PO DAILY DANIELLE Last Admin: 05/13/18 10:25 Dose: 1 mg Hydrochlorothiazide (Hydrodiuril) 25 mg PO DAILY [facility] Last Admin: 05/13/18 10:29 Dose: 25 mg Ceftriaxone Sodium (Rocephin Iv 1 Gm Duplex) 50 mls @ 100 mls/hr IVPB DAILY [facility]; Protocol Last Admin: 05/13/18 10:11 Dose: 100 mls/hr Azithromycin 500 mg/ Sodium (Chloride) 250 mls @ 167 mls/hr IVPB Q24H DANIELLE; Protocol Last Admin: 05/13/18 20:00 Dose: Not Given Insulin Human Regular (Novolin R) 0 unit SC ACHS [facility]; Protocol Last Admin: 05/14/18 07:45 Dose: 4 units Metoprolol Succinate (Toprol Xl) 50 mg PO DAILY [facility] Last Admin: 05/13/18 10:25 Dose: 50 mg Rosuvastatin Calcium (Crestor) 5 mg PO HS [facility] Last Admin: 05/13/18 21:32 Dose: 5 mg - Labs Labs: 05/12/18 17:09 05/12/18 17:09 PT 11.7 SECONDS (9.7-12.2) 05/12/18 17:09 INR 1.1 05/12/18 17:09 APTT 32 SECONDS (21-34) 05/12/18 17:09
--- NOTE | 2018-05-14 09:44 | RAD ---
Date of service: 05/13/2018 HISTORY: post bronchoscopy COMPARISON: 05/12/2018 chest single-view and chest without contrast 05/06/2018 FINDINGS: LUNGS: CC T sub pleural posterior right lower lobe nodular soft tissue pathology with blending bronchiectasis is not appreciate on this exam it could be of cold obscured by the right hemidiaphragm on chest x-ray. PLEURA: No significant pleural effusion identified, no pneumothorax apparent. CARDIOVASCULAR: There is presence of aortic atherosclerotic calcification on x-ray. Cardiomegaly trace pulmonary venous congestion not excluded. No worsening pulmonary venous congestion appreciated. OSSEOUS STRUCTURES: No significant abnormalities. A left calcific rotator cuff tendinopathy status and/or calcific bursitis status is noted-no change appreciated. Thoracic spondylosis VISUALIZED UPPER ABDOMEN: Normal. OTHER FINDINGS: None. IMPRESSION: Status post cos copy-per history. No pneumothorax seen. The far posterior and inferior sub pleural/peripheral right lower lobe pulmonary nodular soft tissue pathology process on CT is not appreciated on this view it could well be occult obscured by the right hemidiaphragm. Continued clinical follow-up and correlation with bronchoscopy results is advised.
[2018-05-14] MEDS: MethylPREDNISolone 40 mg Vial IVP SCH (10:53)
[2018-05-14] MEDS: Metoprolol Succinate 25 mg XL Tab PO SCH (10:53)
[2018-05-14] MEDS: cefTRIAXone IV 1 gm in Dextros 50 ML IVPB SCH (10:58)
--- NOTE | 2018-05-14 12:17 | RAD ---
Date of service: 05/13/2018 PROCEDURE: Intraoperative Fluoroscopy. HISTORY: DX: PNEUMONIA FINDINGS: Fluoroscopic assistance was provided. Fluoroscopy time = 21.9 sec. Radiation dose = 0.20115 mGy-cm. Please refer to the operative report for additional details.
[2018-05-14] MEDS: Azithromycin 500 MG in Sodium Chloride 0.9% 250 ML IVPB SCH (20:35)
[2018-05-15] MEDS: Albuterol-Ipratrop 3 mg / 0.5 (3 ml) UD INH SCH ×3 (01:20→13:05)
[2018-05-15] MEDS: (Novolin R) Insulin Human Regular 100 units/ml vial SC SCH ×2 (07:30→11:36)
[2018-05-15 08:11] VITALS: BP 125/69; PULSE 77; RESP 18; TEMP 98
[2018-05-15] MEDS: cefTRIAXone IV 1 gm in Dextros 50 ML IVPB SCH (09:32)
[2018-05-15] MEDS: MethylPREDNISolone 40 mg Vial IVP SCH (09:39)
[2018-05-15] MEDS: Metoprolol Succinate 25 mg XL Tab PO SCH (12:08)
--- NOTE | 2018-05-15 14:28 | CP.PCM.DIS ---
Provider - Provider Date of Admission: 05/12/18 17:39 Attending physician: Jolene Mueller MD Time Spent in preparation of Discharge (in minutes): 45 Hospital Course - Lab Results Lab Results: Micro Results 05/13/18 19:12 Bronchial Washings Bronchial Culture - Final NORMAL ORAL REGINO PRESENT 05/12/18 16:52 Blood Blood Culture - Preliminary NO GROWTH AFTER 48 HOURS 05/12/18 16:52 Blood Blood Culture - Preliminary NO GROWTH AFTER 48 HOURS Most Recent Lab Values WBC 8.6 K/uL (4.8-10.8) 05/12/18 17:09 RBC 4.50 Mil/uL (3.80-5.20) 05/12/18 17:09 Hgb 8.7 g/dL (11.0-16.0) L 05/12/18 17:09 Hct 29.0 % (34.0-47.0) L 05/12/18 17:09 MCV 64.5 fL (81.0-99.0) L 05/12/18 17:09 MCH 19.4 pg (27.0-31.0) L 05/12/18 17:09 MCHC 30.1 g/dL (33.0-37.0) L 05/12/18 17:09 RDW 17.9 % (11.5-14.5) H 05/12/18 17:09 Plt Count 535 K/uL (130-400) H D 05/12/18 17:09 MPV 7.0 fL (7.2-11.7) L 05/12/18 17:09 Neut % (Auto) 74.0 % (50.0-75.0) 05/12/18 17:09 Lymph % (Auto) 14.6 % (20.0-40.0) L 05/12/18 17:09 [place] % (Auto) 8.6 % (0.0-10.0) 05/12/18 17:09 Eos % (Auto) 2.4 % (0.0-4.0) 05/12/18 17:09 Baso % (Auto) 0.4 % (0.0-2.0) 05/12/18 17:09 Neut # (Auto) 6.3 K/uL (1.8-7.0) 05/12/18 17:09 Lymph # (Auto) 1.2 K/uL (1.0-4.3) 05/12/18 17:09 [place] # (Auto) 0.7 K/uL (0.0-0.8) 05/12/18 17:09 Eos # (Auto) 0.2 K/uL (0.0-0.7) 05/12/18 17:09 Baso # (Auto) 0.0 K/uL (0.0-0.2) 05/12/18 17:09 PT 11.7 SECONDS (9.7-12.2) 05/12/18 17:09 INR 1.1 05/12/18 17:09 APTT 32 SECONDS (21-34) 05/12/18 17:09 Sodium 135 mmol/L (132-148) 05/12/18 17:09 Potassium 3.6 mmol/L (3.6-5.2) 05/12/18 17:09 Chloride 101 mmol/L (98-107) 05/12/18 17:09 Carbon Dioxide 28 mmol/L (22-30) 05/12/18 17:09 Anion Gap 10 (10-20) 05/12/18 17:09 BUN 8 mg/dL (7-17) 05/12/18 17:09 Creatinine 0.9 mg/dL (0.7-1.2) 05/12/18 17:09 Est GFR ( Amer) > 60 05/12/18 17:09 Est GFR (Non-Af Amer) > 60 05/12/18 17:09 POC Glucose (mg/dL) 297 mg/dL (65-110) H 05/14/18 21:46 Random Glucose 98 mg/dL (65-105) D 05/12/18 17:09 Calcium 9.1 mg/dl (8.6-10.4) 05/12/18 17:09 Total Bilirubin 0.4 mg/dL (0.2-1.3) 05/12/18 17:09 AST 29 U/L (14-36) 05/12/18 17:09 ALT 21 U/L (9-52) 05/12/18 17:09 Alkaline Phosphatase 90 U/L (38-126) 05/12/18 17:09 Troponin I < 0.0120 ng/mL (0.00-0.120) 05/12/18 17:09 NT-Pro-B Natriuret Pep 155 pg/mL (0-900) 05/12/18 17:09 Total Protein 7.0 g/dL (6.3-8.3) 05/12/18 17:09 Albumin 3.8 g/dL (3.5-5.0) 05/12/18 17:09 Globulin 3.3 gm/dL (2.2-3.9) 05/12/18 17:09 Albumin/Globulin Ratio 1.2 (1.0-2.1) 05/12/18 17:09 Urine Color Yellow (YELLOW) 05/12/18 17:43 Urine Clarity Clear (Clear) 05/12/18 17:43 Urine pH 7.0 (5.0-8.0) 05/12/18 17:43 Ur Specific [place] 1.008 (1.003-1.030) 05/12/18 17:43 Urine Protein Negative mg/dL (NEGATIVE) 05/12/18 17:43 Urine Glucose (UA) Normal mg/dL (Normal) 05/12/18 17:43 Urine Ketones Negative mg/dL (NEGATIVE) 05/12/18 17:43 Urine Blood Negative (NEGATIVE) 05/12/18 17:43 Urine Nitrate Negative (NEGATIVE) 05/12/18 17:43 Urine Bilirubin Negative (NEGATIVE) 05/12/18 17:43 Urine Urobilinogen Normal mg/dL (0.2-1.0) 05/12/18 17:43 Ur Leukocyte Esterase Neg Dotty/uL (Negative) 05/12/18 17:43 Urine WBC (Auto) < 1 /hpf (0-5) 05/12/18 17:43 Ur Squamous Epith Cells < 1 /hpf (0-5) 05/12/18 17:43 Hyaline Casts 3-5 /lpf (0-2) H 05/12/18 17:43 Influenza Typ A,B (EIA) Negative for flu a/b (NEGATIVE) 05/12/18 17:09 - Hospital Course Hospital Course: Chief complaint: Increasing cough, hypoxia and respiratory distress HPI: 73-year-old female with a history of hypertension, CAD, cardiac stent, hypercholesterolemia, asthma, multiple allergies and osteoarthritis, rheumatoid arthritis came to the emergency room, following the patient was seen in my office. The patient 3 months ago admitted to the hospital with the pneumonia. At that time with antibiotic and intravenous corticosteroid pneumonia got better. There is near complete resolution of the pneumonia in the recent CAT scan noted. But the recent evaluation was started showing increasing symptoms of recurrence Recently patient was hospitalized, and outpatient CAT scan of the chest was done, showing evidence of worsening alveolar changes diffusely, but there is a significant improvement in the right lower lung pneumonia process. But patient was having increasing cough increasing chest tightness and wheezing and also there was significant drop in oxygen saturation, I advised her to go to the hospital. Patient in the emergency room was evaluated given steroid, this morning she is feeling much better. Lungs are less wheezing. She is also feeling slightly better able to walk. Yesterday she was not able to walk. Her functional capacity is extremely reduced less than 1 block 3 days ago, but it today she is able to walk few steps. Low-grade fever noted. Poor appetite noted at times. Sweating at times noted. Denies any nausea no vomiting no abdominal pain. Patient is being treated for rheumatoid arthritis with methotrexate. Patient received also outpatient p.o. antibiotic and steroid, with no improvement. Past medical history: Hypertension, CAD, stent, hypercholesterolemia, asthma, multiple allergies, osteoarthritis, rheumatoid arthritis. Surgical history: Patient has a stent in the RCA. Patient had multiple endoscopy and a colonoscopy. Patient has multiple allergies including iodine, seasonal allergy, pollens, phenylenediamine, sulfa, cat danders. Personal history: Non-smoker nonalcoholic functional capacity is normal Family history noncontributory Review of system: Patient is having headache, cough, wheezing, chest tightness, shortness of breath, fever, chills, Patient has a multiple allergies in the past. Chest pain with the cough noted On examination: Patient noted to have a hypoxia at room air. Supplemental oxygen improves the oxygenation. Vital signs are stable otherwise. Heart sounds are regular Chest a minimal expiratory bilateral wheezing noted irregular heart sound. Abdomen nontender. Pedal edema negative Labs reviewed X-ray showing increasing alveolar changes noted, worsening congestive changes noted Assessment and recommendation: 72-year-old female with multiple medical history including CAD's hypertension hypercholesterolemia status post a stent. Patient has rheumatoid arthritis, currently patient is also taking immunosu ppressive treatment for rheumatoid arthritis in the form of methotrexate. Now admitted with a possible acute pneumonitis, pneumonia. Patient possibly has a worsening alveolar process Diffuse alveolitis, underlying bronchoalveolar pneumonia cannot be ruled out Underlying non-resolving pneumonia likely, and also BOOP possible. We will start the patient on empirical antibiotic. Solu-Medrol. Oxygen supplementation. DVT GI prophylaxis. We will closely monitor. We will plan for bronchoscopic evaluation. Patient might need a transthoracic needle biopsy also. We will continue the DVT and GI prophylaxis antibiotic bronchodilators Course in the hospital: Patient was admitted to the hospital with the diagnosis of bronchoalveolar pneumonia bilateral. Repeat CAT scan showing evidence of worsening changes, and associated with the improvement in the right lower lung mass like lesions. Patient was also noted to have hypoxia. Patient admitted to the hospital with diagnosis of acute exacerbation of interstitial pneumonia. Placed on intravenous corticosteroid Antibiotic. Patient markedly improved after the intravenous corticosteroid. On 05/14/2018 patient underwent a bronchoscopic evaluation, the results are nonspecific. I recommended transthoracic needle biopsy, patient is agreeing. I spoke to the interventional radiologist. The procedure will be done as an outpatient. Patient will be discharged home today. She will continue prednisone for 14 more days, Zithromax for 7 more days. She will hold off the Plavix if on Sunday for 4 days prior to the procedure. Final diagnosis: Acute interstitial exacerbation pneumonia. Pneumonitis. Non-resolving pneumonia. CAD, heart disease, hypertension, rheumatoid arthritis. 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 We will follow the patient Medications reviewed Discharge Plan - Discharge Medications Prescriptions: RX: Prednisone [Deltasone] 20 mg PO DAILY #14 tablet Budesonide/Formoterol Fumarate [Symbicort] 1 aer IH BID #1 aer Azithromycin [Zithromax] 250 mg PO DAILY #7 tab - Follow Up Plan Condition: GOOD Disposition: HOME/ ROUTINE Referrals: Brice Salas MD [Staff Provider] -
[2018-05-16 08:23] VITALS: O2SAT 95
--- NOTE | 2018-05-19 10:04 | CARD ---
APPROVED REPORT Date of service: 05/12/2018 EKG Measurement Heart [id number] <Conclusion> Sinus tachycardia Otherwise normal ECG
--- NOTE | 2018-05-29 14:10 | OP ---
PROCEDURE DATE: 05/13/2018 PROCEDURE: Bronchoscopic biopsy and evaluation. CONSENT: Informed consent from the patient. DESCRIPTION OF PROCEDURE: The patient was brought to the endoscopy room suite. The patient was explained about the procedure well in detail. Consent was obtained from the patient. Under conscious sedation, the right nostril was prepped with local anesthetics, the bronchoscope was introduced through the right nostril into the oropharynx and the vocal cord. Vocal cord was moving very well. No problems are identified. Upon entering into the tracheobronchial tree, there was significant mucosal thickening, cobblestone appearance of the mucosa noted. Mild thick secretions noted bilaterally in the bronchial tree and the left bronchial tree was visualized clearly. Right lower lung infiltrative changes from the radiological point of view noted and the BAL, brushing, and also washings were taken from the site. Specimens were sent to pathology, microbiology, and cytology evaluation. The patient tolerated the procedure well. Postoperatively, chest x-ray negative. The patient is clinically stable. We will follow up. Jolene Mueller MD
== END 2018-05-15 15:52 | disposition home or self-care (01) | DRG 190 ==
LOC: C.ER 15:53 → C.9E 17:39 → C.6T 18:52
PROVIDERS: ADMIT Internal Medicine; ATTEND Internal Medicine
PROC: 0B9F7ZX Drainage of Right Lower Lung Lobe, Via Natural or Artificial Opening, Diagnostic (ICD-10-PCS; principal; 2018-05-13 12:00)
DX: J44.0 Chronic obstructive pulmonary disease with (acute) lower respiratory infection (principal); J18.9 Pneumonia, unspecified organism; J84.89 Other specified interstitial pulmonary diseases; M05.10 Rheumatoid lung disease with rheumatoid arthritis of unspecified site; R06.03 Acute respiratory distress; D56.9 Thalassemia, unspecified; I10 Essential (primary) hypertension; I25.10 Atherosclerotic heart disease of native coronary artery without angina pectoris; E78.5 Hyperlipidemia, unspecified; E78.00 Pure hypercholesterolemia, unspecified; Z87.01 Personal history of pneumonia (recurrent); Z88.2 Allergy status to sulfonamides; Z95.5 Presence of coronary angioplasty implant and graft

== ENCOUNTER 2018-05-22 09:29 | Day surgery (SDC) | payer MEDICARE, OTHER ==
[2018-05-21 08:56] VITALS: BMI 29.7
[2018-05-22] MEDS ORDERED: Midazolam 2 MG/2 ML VIAL ONE (11:18)
--- NOTE | 2018-05-22 11:49 | CP.SDSHP ---
Same Day Surgery H & P - History Proposed Procedure: CT guided right lung mass biopsy Pre-Op Diagnosis: right lung mass - Allergies Allergies: Allergies Iodinated Contrast- Oral and IV Dye [Iodinated Contrast Media - IV Dye] Allergy (Intermediate, Verified 05/12/18 15:59) RASH nut - unspecified Allergy (Verified 05/12/18 15:59) SWELLING all nuts swelling,urticaria,redness,rash cleaning products Allergy (Uncoded 05/12/18 15:59) SWELLING all cleaning products swelling,redness,urticaria,rash - Physical Exam Mental Status: Alert & Oriented x3 Neuro: WNL Heart: WNL Lungs: WNL - Impression Impression: Pt with multinodular consolidation right lower lobe. Plan CT guided right lung mass biopsy. Pt. Evaluated Today:Candidate for Anesthesia & Procedure: Yes (ASA 3 Malampati 3) - Date & Time Date: 05/22/18 Time: 11:25 Short Stay Discharge - Short Stay Discharge Admitting Diagnosis/Reason for Visit: lung mass Disposition: HOME/ ROUTINE
--- NOTE | 2018-05-22 11:51 | PCM.SURG1 ---
Surgeon's Initial Post Op Note - Surgeon's Notes Surgeon: Brice ATKINS MD [employer] Appliances: NONE Type of Anesthesia: Moderate Sedation{RN} Pre-Operative Diagnosis: right lung mass Operative Findings: right lung mass. Post-Operative Diagnosis: right lung mass Operation Performed: CT guided right lung mass biopsy. Two 20-g core biopsy specimen obtained. Specimen/Specimens Removed: 20-g core x 2 Estimated Blood Loss: EBL {In ML}: 0 Blood Products Given: N/A Drains Used: No Drains Post-Op Condition: Good Date of Surgery/Procedure: 05/22/18 Time of Surgery/Procedure: 11:50
--- NOTE | 2018-05-22 14:50 | CT ---
PROCEDURE: Date of procedure: 05/22/2018 Procedure: 1. CT-guided lung mass biopsy, CPT [address] Guidance for biopsy, [address] Radiation: 359.58 MGy-cm Medications: The patient was sedated by anesthesiologist along with physiologic monitoring. HISTORY: Right lower lobe lung nodule TECHNIQUE: Following informed consent, the Pt's chest was marked. The Pt was placed prone on the CT table and procedure time out was performed. A noncontrast CT scan was performed. Noncontrast CT scan confirmed the presence of a multiple nodules in the lower right lower lobe. Localizer was placed on the patient's right back and a repeat CT scan was performed. The skin was marked, prepped, and draped in the usual sterile fashion. After the skin was anesthetized with lidocaine and the patient sedated by the anesthesiologist, a 20 gauge core needle was advanced percutaneously under direct CT guidance into the mass. Upon confirmation of needle position, two 20-gauge core specimens were obtained and sent for routine pathology. The needle was removed and a xeroform dressing was applied. A post biopsy CT scan showed no pneumothorax. IMPRESSION: CT guided core biopsy right lung lower lobe lung nodule.
--- NOTE | 2018-05-23 12:46 | RAD ---
HISTORY: Right lung mass biopsy. COMPARISON: Chest x-ray performed, CT chest without IV contrast performed 05/06/18, chest x-ray performed 05/13/18 TECHNIQUE: Chest, one view. FINDINGS: Examination limited by habitus. LUNGS: Hazy opacity at the inferior right lower lobe/mid lung may reflect confluence of shadows. Right lower lobe nodule seen by CT is not appreciated on the chest x-ray. No focal consolidation. Please note that chest x-ray has limited sensitivity for the detection of pulmonary masses. PLEURA: No significant pleural effusion identified. No definite pneumothorax . CARDIOVASCULAR: Cardiomegaly. Atherosclerotic calcifications of the aorta. OSSEOUS STRUCTURES: No acute osseous abnormality identified. VISUALIZED UPPER ABDOMEN: Mild elevation of the right hemidiaphragm. OTHER FINDINGS: None. IMPRESSION: Hazy opacity at the inferior right lower lobe/mid lung may reflect confluence of shadows. Right lower lobe nodule seen by CT is not appreciated on the chest x-ray. No focal consolidation.
== END 2018-05-22 14:34 | disposition home or self-care (01) ==
LOC: C.SPRAD 09:29
PROVIDERS: ATTEND Radiology Vascular & Interventional Radiology
DX: R91.1 Solitary pulmonary nodule (principal)
CPT/HCPCS: 32405; 71045; 77012; 88305; J2250; J3010

== ENCOUNTER 2018-07-23 14:31 | Outpatient (CLI) | payer MEDICARE, OTHER | END 2018-07-23 14:32 | disposition home or self-care (01) | LOC: C.RADIC 14:31 ==